=== PATIENT | male | born 2000 | race Caucasian/White ===

== ENCOUNTER 2020-05-26 20:56 | Emergency (ER) | payer MEDICAID, SELFPAY ==
[2020-05-26 21:11] VITALS: BP 140/73; PULSE 95; RESP 16; TEMP 37.1; O2SAT 100; BMI 18.2
--- NOTE | 2020-05-26 22:04 | ED_ITS ---
HPI - General Adult General Chief complaint: Extremity Problem Stated complaint: ABCESS? Time Seen by Provider: 05/26/20 22:04 History of Present Illness HPI narrative: This is a 19-year-old male who states that he has recently cut his hair with clippers and then began developing small ?pimples? to various areas of his scalp that he has tried to treat with [id number] T/Gel, Head and Shoulders without success and then he noted that he had a small area of swelling to the right posterior neck without redness, fevers, chills, neck stiffness. complaint: Swelling at the right posterior neck Location: neck Related Data Previous Rx's Medication Instructions Recorded doxycycline monohydrate 100 mg PO BID 5 Days #10 cap 05/26/20 Allergies Allergy/AdvReac Type Severity Reaction Status Date / Time No Known Allergies Allergy Unverified 02/29/20 17:18 Review of Systems Review of Systems: Pertinent positives and negatives as stated in HPI 10 point review of systems otherwise negative. [facility] Past Medical History Source: nursing notes reviewed Medical History Asthma Social History Social History Advance Directives: No Advance Directives Information Provided: Yes Physical Exam Vital Signs: Vital Signs: Last Vital Signs Temp 98.8 F 05/26/20 21:11 Pulse 95 05/26/20 21:11 Resp 16 05/26/20 21:11 BP 140/73 H 05/26/20 21:11 Pulse Ox 100 05/26/20 21:11 Body Mass Index 18.2 VITAL SIGNS: Reviewed. GENERAL: Well developed, well nourished, in no acute distress. HEAD: Normocephalic/scalp with multiple areas of folliculitis but no furuncles noted EYES: PERRLA, EOMI intact without pain, no nystagmus/pallor/icterus noted EARS: Ext canals without abnormality, TMs non-bulging and non-erythematous NOSE: Nares patent bilateral OROPHARYNX: no oral lesions noted, posterior pharynx clear and non-erythematous without noted tonsillar enlargement/erythema/exudates NECK: Supple, isolated right, posterior single enlarged lymph node approximately 2.5 cm without associated erythema, induration, fluctuance, it is mobile LUNGS: Normal breath sounds. No adventitious sounds or accessory muscle use. SpO2<100> CARDIOVASCULAR: Regular rate and rhythm without noted murmurs, no JVD or lower extremity edema. ABDOMEN: Soft, non-tender, non-distended with bowel sounds. No rigidity. No guarding. No palpable masses or hernias noted MUSCULOSKELETAL: No tenderness, deformities, or effusions noted on gross inspection. EXTREMITIES: No cyanosis, clubbing or edema. SKIN: Inspection of the skin reveals no rashes, ulcerations, jaundice, pallor, or petechiae. NEUROLOGIC: Alert and oriented x 4. Strength and sensation to light touch were grossly intact x 4. Course Course Course Narrative: This is a 19-year-old male with history and clinical presentation consistent with scalp folliculitis doubt head lice and no evidence to suggest tinea. The small areas are draining into the lymph node. The process was explained to the patient and he was informed that he will be started on an antibiotic and was otherwise instructed to follow-up with his primary care provider for re-evaluation and further outpatient management. Discharge Plan Discharge Clinical Impression: Folliculitis barbae Patient Disposition: Home, Self-Care Instructions: Folliculitis (ED) Additional Instructions: 1. Tylenol 1000 mg, orally, every 6 hours as needed for discomfort. Do not exceed 4000 mg within 24 hours. 2. Ibuprofen 400 mg, orally with milk or food, every 6 hours as needed for discomfort. 3. Please follow-up with your offline editor/primary care provider by calling the office Wednesday morning for re-evaluation and outpatient management regarding the scalp infection and current antibiotic regimen. The patient and/or family acknowledge understanding of results (as applicable), diagnosis, treatment plan, need for follow up, and symptoms that should prompt a return to the emergency room. Prescriptions: New doxycycline monohydrate 100 mg capsule 100 mg PO BID 5 Days Qty: 10 RF: 0 Referrals: Physician,Unknown [Primary Care Provider] - 2 days
== END 2020-05-26 22:36 | disposition home or self-care (01) ==
PROVIDERS: Emergency Provider Student in an Organized Health Care Education/Training Program
DX: L73.1 Pseudofolliculitis barbae (principal)
CPT/HCPCS: 99283

== ENCOUNTER 2020-06-30 12:51 | Emergency (ER) | payer MEDICAID, SELFPAY ==
[2020-06-30 13:19] VITALS: BP 128/69; PULSE 93; RESP 16; TEMP 36.7; O2SAT 97; BMI 19.8
--- NOTE | 2020-06-30 13:35 | ED.GENADULT ---
HPI - General Adult General Chief complaint: General Medical Stated complaint: cyst on neck Time Seen by Provider: 06/30/20 13:35 History of Present Illness HPI narrative: Patient is a 19-year-old male presents today with having itchy scalp. Patient also noted a mass in his neck. Patient from home. No fever no chills. No significant past medical history. No fever no chills. No cough no congestion or upper respiratory symptoms. Positive lots of dandruff. Patient from home. Extremely itchy scalp. Symptoms been ongoing for about a month. No chest pain or shortness of breath no diaphoresis no systemic complaints Related Data Previous Rx's Medication Instructions Recorded doxycycline monohydrate 100 mg PO BID 5 Days #10 cap 05/26/20 selenium sulfide 1 appl TOPICAL DAILY 7 Days ml 06/30/20 Allergies Allergy/AdvReac Type Severity Reaction Status Date / Time No Known Allergies Allergy Unverified 02/29/20 17:18 Review of Systems Review of Systems: Constitutional: No Weight loss, No Fever, No Chills, No Night Sweats, No Fatigue, No Malaise ENT/Mouth: No Hearing loss, No Ear Pain, No Nasal Congestion, No Sinus Pain, No Hoarseness, No sore throat, No Rhinorrhea, No Swallowing Difficulty Eyes: No Eye Pain, No Swelling, No Redness, No Foreign Body, No Discharge, No Vision Changes Cardiovascular: No Chest Pain, No SOB, No Dyspnea on Exertion, No Orthopnea, No Edema, No Palpitations Respiratory: No Cough, No Sputum, No Wheezing, No Smoke Exposure, No Dyspnea Gastrointestinal: No Nausea, No Vomiting, No Diarrhea, No Constipation, No abdominal Pain, No Hematochezia, No Melena Genitourinary: no irregular bleeding, No Dysuria, No Urinary Frequency, No Hematuria, No Urinary Incontinence, No Urgency, No Flank Pain, No Urinary Flow Changes, No Hesitancy Musculoskeletal: No joint pain, No Myalgias, No Joint Swelling Skin: Positive itchy scalp positive mass noted in the neck Neuro: No Weakness, No Numbness, No Paresthesias, No Loss of Consciousness, No Dizziness, No Headache Psych: No Anxiety/Panic, No Depression, No SI/HI/AH/VH, No Social Issues, Heme/Lymph: No Bruising, No Bleeding,No Lymphadenopathy Endocrine: No Polyuria, No Polydipsia, No Temperature Intolerance PMFSH Past Medical History Attestation statement: The following information was validated with the patient. Medical History Asthma Social History Social History Advance Directives: No Advance Directives Information Provided: Yes Physical Exam Vital Signs: Vital Signs: Last Vital Signs Temp 98.1 F 06/30/20 13:19 Pulse 93 06/30/20 13:19 Resp 16 06/30/20 13:19 BP 128/69 06/30/20 13:19 Pulse Ox 97 06/30/20 13:19 Body Mass Index 19.8 Appearance: Alert. Oriented X3. No acute distress. Eyes: Pupils equal, round and reactive to light. ENT: Pharynx normal. Neck: Normal inspection. Neck supple. Positive lymph nodes noted. No crepitus CVS: Normal heart rate and rhythm. Pulses normal. Normal S1 and S2 Respiratory: No respiratory distress. Breath sounds normal. No Wheezing. No rales Abdomen: Soft and nontender. No rigidity. No distention. good BS x4 Skin: Dry itchy scalp with areas of redness noted. Extremities: No lower extremity edema. Neurovascular intact to all extremities. No Lacerations. No Rash Neuro: Oriented X 3. No motor deficit. No sensory deficit. Moving all extermities. No slurred speech Medical Decision Making MDM Narrative Medical decision making narrative: Question dandruff causing patient's issues. Will go ahead and have patient use dandruff shampoo. Follow up with his primary physician on an outpatient basis. No distress. Vital signs are normal. In stable condition Discharge Plan Discharge Clinical Impression: Dandruff in adult Patient Disposition: Home, Self-Care Instructions: Selenium Sulfide (On the skin) Prescriptions: New selenium sulfide 1 % shampoo 1 appl topical DAILY 7 Days RF: 0 No Action doxycycline monohydrate 100 mg capsule 100 mg PO BID 5 Days Qty: 10 RF: 0 Referrals: [facility] [Primary Care Provider] - 2 days
== END 2020-06-30 14:00 | disposition home or self-care (01) ==
PROVIDERS: Emergency Provider Emergency Medicine Emergency Medical Services
DX: L21.0 Seborrhea capitis (principal); L29.8 Other pruritus; Z79.899 Other long term (current) drug therapy
CPT/HCPCS: 99283

== ENCOUNTER 2020-11-05 17:02 | Emergency (ER) | payer MEDICAID, SELFPAY ==
[2020-11-05 17:22] VITALS: BP 115/79; PULSE 99; RESP 18; TEMP 37; O2SAT 100; BMI 40.2
--- NOTE | 2020-11-05 17:39 | ED_ITS ---
HPI - Allergic Reaction General Chief complaint: Allergic Reaction Stated complaint: allergic reaction Time Seen by Provider: 11/05/20 17:31 Source: patient, RN notes reviewed and old records reviewed Mode of arrival: ambulatory Limitations: no limitations History of Present Illness HPI narrative: 19 years old male here today for allergic reaction. Patient was seen by his eyewear manufacturing tech today for his weekly allergy shots and developed diffuse rash on his torso, itchy and swollen throat. Denies dysphagia, SOB with or without exertion, palpitations or chest pain. Related Data Previous Rx's Medication Instructions Recorded doxycycline monohydrate 100 mg PO BID 5 Days #10 cap 05/26/20 selenium sulfide 1 appl TOPICAL DAILY 7 Days ml 06/30/20 epinephrine [EpiPen 2-Amando] 0.3 mg IM Q15M PRN #2 ea 11/05/20 Allergies Allergy/AdvReac Type Severity Reaction Status Date / Time No Known Allergies Allergy Unverified 02/29/20 17:18 Review of Systems Review of Systems: Constitutional : No Weight loss, No Fever, No Chills, No Ni ght Sweats, No Fatigue, No Malaise ENT/Mouth : No Hearing loss, No Ear Pain, No Nasal Congestion, No Sinus Pain, No Hoarseness, No sore throat, No Rhinorrhea, No Swallowing Difficulty, scratchy throat, swelling of his throat Eyes: No Eye Pain, No Swelling, No Redness, No Foreign Body, No Discharge, No Vision Changes Cardiovascular : No Chest Pain, No SOB, No Dyspnea on Exertion, No Orthopnea, No Edema, No Palpitations Respiratory : No Cough, No Sputum, No Wheezing, No Smoke Exposure, No Dyspnea Gastrointestinal : No Nausea, No Vomiting, No Diarrhea, No Constipation, No abdominal Pain, No Hematochezia, No Melena Genitourinary : no irregular bleeding, No Dysuria, No Urinary Frequency, No Hematuria, No Urinary Incontinence, No Urgency, No Flank Pain, No Urinary Flow Changes, No Hesitancy Musculoskeletal : No joint pain, No Myalgias, No Joint Swelling Skin : No Skin Lesions, rash Neuro : No Weakness, No Numbness, No Paresthesias, No Loss of Consciousness, No Dizziness, No Headache Psych : No Anxiety/Panic, No Depression, No SI/HI/AH/VH, No Social Issues, Heme/Lymph: No Bruising, No Bleeding,No Lymphadenopathy Endocrine : No Polyuria, No Polydipsia, No Temperature Intolerance Yes all other systems are reviewed and are negative [facility] Past Medical History Medical History Asthma Social History Social History Advance Directives: No Advance Directives Information Provided: Yes Physical Exam Vital Signs: Vital Signs: Last Vital Signs Temp 98.6 F 11/05/20 17:22 Pulse 99 11/05/20 17:22 Resp 18 11/05/20 17:22 BP 115/79 11/05/20 17:22 Pulse Ox 100 11/05/20 17:22 Body Mass Index 40.2 Const: General: cooperative, healthy appearing and comfortable Nutritional Appearance: average body habitus Orientation/consciousness: patient oriented x3 Limitations: no limitations HENMT: Head: Yes normal to inspection Ears: hearing grossly normal bilaterally General nose exam: Normal external nose present Face and sinus: Yes normal facial exam Mouth: Normal oral and palatal mucosa present Throat: Yes posterior oropharynx normal and Yes other (Swelling of his tonsils) Eyes: General: appearance normal, both eyes and all related structures Eyelids: Yes eyelids normal Conjunctivae: conjunctivae normal Sclerae: sclerae normal Pupils: Equal, round and reactive pupils present Neck: Neck: Yes normal visual inspection, Yes full ROM, Yes no lymphadenopathy, Yes trachea midline and Yes supple Thyroid: Thyroid normal Lymphatic: no lymphadenopathy noted Chest: Chest palpation & inspection: normal inspection of the chest Resp: Effort & Inspection: normal respiratory effort and able to speak in complete sentences Auscultation: clear to auscultation bilaterally Cardio: Jugular venous distension: no JVD Rate: regular rate Rhythm: regular rhythm Heart sounds: S1 normal heart sound present, S2 normal heart sound present, no gallops, no murmurs and no rubs Peripheral pulses: Peripheral pulses 2+ throughout GI: Inspection: Yes normal to inspection and No distended Palpation (GI): No hepatosplenomegaly present and No Rebound tenderness present Percussion: Yes normal to percussion Auscultation: normal bowel sounds Back/Spine/Pelvis: Cervical Spine: cervical ROM normal and No cervical muscular tenderness Thoracic/Lumbar Spine: thoracic and lumbar spine normal to inspection Skin: General skin exam: elasticity normal, turgor normal and other (Diffuse rash to torso and bilateral upper extremities) Neuro: General: patient oriented x3 Cranial nerves: Yes Equal, round and reactive pupils present Extrem: General: Yes normal to inspection, Yes full ROM and Yes capillary refill normal Psych: Appearance: grossly normal Mental Status: mental status grossly normal Speech and movement: Normal speech and movement present Affect: normal affect Attitude: cooperative Thought process: Normal thought process present Insight: Good insight present (Psych) Course Course Course Narrative: 19-year-old male here today for allergic reaction after receiving his weekly allergy shots. Diffuse rash on his abdomen, back and upper extremities. Scratchy throat, negative for dysphagia, SOB, CP, palpitations. Will medicate him with Benadryl, Solu-Medrol, epinephrine. Reevaluation(s) Reevaluation #1: Patient re-evaluated and has no rash, denies tingling of his throat. We will watch him for another half an hour and patient will call his father to take him home. Denies any SOB, dysphagia or palpitations. Rash completely gone, his throat feels much better. I will send him home to follow up with his PCP and his eyewear manufacturing tech Discharge Plan Discharge Clinical Impression: Allergic reaction, Urticaria Patient Disposition: Home, Self-Care Instructions: Urticaria (ED), General Allergic Reaction (ED) Additional Instructions: You were seen here today for allergic reaction to the allergy shots. You were given epinephrine, Solu-Medrol, Benadryl and fluids to reverse the allergic reaction. Please follow-up with your eyewear manufacturing tech so you can avoid allergic reaction in the future. You were monitored in the ER for 2 hours after the medication. Please follow-up with your primary care doctor in 2-3 days. You may return to emergency room if your symptoms return/get worse or if you will experience any other concerning symptoms. Prescriptions: New epinephrine [EpiPen 2-Amando] 0.3 mg/0.3 mL auto-injector 0.3 mg IM Q15M PRN (Reason: allergic reaction) Qty: 2 RF: 0 No Action selenium sulfide 1 % shampoo 1 appl topical DAILY 7 Days RF: 0 doxycycline monohydrate 100 mg capsule 100 mg PO BID 5 Days Qty: 10 RF: 0 Interventions: ED Discharge Assessment Last Done: 11/05/20 20:02
[2020-11-05] MEDS: methylPREDNISolone Sod Succ 125 MG/2 ML VIAL IVPUSH (18:14)
[2020-11-05] MEDS: diphenhydrAMINE HCL 50 MG/ML VIAL 25 MG IVPUSH (18:14)
[2020-11-05] MEDS: EPINEPHrine 1 MG/ML VIAL 0.3 MG SUBCUT (18:15)
[2020-11-05] MEDS: 0.9 % Sodium Chloride 1,000 ML 999 ML IV (18:15)
== END 2020-11-05 20:02 | disposition home or self-care (01) ==
PROVIDERS: Emergency Provider Internal Medicine
DX: L50.9 Urticaria, unspecified (principal); T50.Z95A Adverse effect of other vaccines and biological substances, initial encounter; Y92.019 Unspecified place in single-family (private) house as the place of occurrence of the external cause; J45.909 Unspecified asthma, uncomplicated
CPT/HCPCS: 96361; 96372; 96374; 96375; 99283; 99284; J0171; J1200; J2930

== ENCOUNTER 2021-03-10 17:15 | Emergency (ER) | payer MEDICAID, SELFPAY ==
[2021-03-10 20:16] VITALS: BP 131/76; PULSE 74; RESP 18; TEMP 37.4; O2SAT 100; BMI 19.8
[2021-03-10 20:49] LABS: COVID-19 Test Negative (Negative)
--- NOTE | 2021-03-10 20:52 | ED_ITS ---
HPI - General Adult General Chief complaint: General Medical Stated complaint: congestion fever Time Seen by Provider: 03/10/21 20:52 Source: patient Mode of arrival: ambulatory Limitations: no limitations History of Present Illness HPI narrative: nasal congestion, ear pain, sore throat. symptoms started 2 days ago. patient is vaccinated against COVID. His father has the same symptoms, was COVID negative Onset (ago): day(s) Severity: mild Associated symptoms: headaches and malaise Related Data Previous Rx's Medication Instructions Recorded doxycycline monohydrate 100 mg 100 mg PO BID 5 Days #10 cap 05/26/20 capsule selenium sulfide 1 % shampoo 1 appl TOPICAL DAILY 7 Days ml 06/30/20 epinephrine 0.3 mg/0.3 mL 0.3 mg IM Q15M PRN #2 ea 11/05/20 injection, auto-injector (EpiPen 2-Amando) fluticasone propionate 50 2 spray INTRANASAL DAILY #16 g 03/10/21 mcg/actuation nasal spray,suspension (Flonase Allergy Relief) Allergies Allergy/AdvReac Type Severity Reaction Status Date / Time No Known Allergies Allergy Unverified 02/29/20 17:18 Review of Systems Constitutional: Constitutional: Reports no additional constitutional complaints Eyes: Eyes: Reports no additional eye complaints ENT: Denies dizziness Cardiovascular: Cardiovascular: Reports no additional cardiovascular complaints Respiratory: Respiratory: Reports as per HPI Gastrointestinal: Gastrointestinal: Reports no additional gastrointestinal complaints Musculoskeletal: Musculoskeletal: Reports no additional musculoskeletal complaints Integumentary/Breasts: Skin/Breast: Denies rash Neurologic: Reports system reviewed and no additional complaints, except as documented, Denies dizziness and Denies Sensory deficit (Neuro) Psychiatric: Psychiatric: Denies anxiety [facility] Past Medical History Medical History Asthma Social History Social History Alcohol intake: never Patient Tobacco Use Status: Never used Tobacco Use of substances other than those prescribed or required for medical reasons: No Advance Directives: No Physical Exam Vital Signs: Vital Signs: Last Vital Signs Temp 99.4 F 03/10/21 20:16 Pulse 74 03/10/21 20:16 Resp 18 03/10/21 20:16 BP 131/76 03/10/21 20:16 Pulse Ox 100 03/10/21 20:16 Body Mass Index 19.8 Const: Other: Nasal congestion and headache Nutritional Appearance: average body habitus Orientation/consciousness: oriented to person and patient oriented x3 Limitations: no limitations HENMT: Other: right TM with effusion and congestion Head: Yes normal to inspection General nose exam: Normal external nose present Mouth: Normal oral and palatal mucosa present and oropharynx normal Throat: Yes posterior oropharynx normal Eyes: General: appearance normal, both eyes and all related structures Neck: Other: supple Neck: Yes normal visual inspection Chest: Chest palpation & inspection: normal inspection of the chest Resp: Auscultation: clear to auscultation bilaterally Cardio: Jugular venous distension: no JVD Rate: regular rate Rhythm: regular rhythm Heart sounds: S1 normal heart sound present and S2 normal heart sound present GI: Inspection: Yes normal to inspection Palpation (GI): Soft to palpation, nontender and No hepatosplenomegaly present Auscultation: normal bowel sounds : General: Yes no CVA tenderness Back/Spine/Pelvis: Back: no CVA tenderness Skin: General skin exam: no rashes or lesions noted Neuro: General: oriented to person and patient oriented x3 Cranial nerves: Yes CN's II-XII intact bilaterally Motor exam (neuro): 5/5 motor strength present throughout Sensory Exam: No Sensory deficit (Neuro) Extrem: General: Yes normal to inspection Psych: Appearance: grossly normal Course Reevaluation(s) Reevaluation #1: Patient with viral URI will dc on nasonex Time: 21:02 Medical Decision Making Lab Data Labs: Lab Results 03/10/21 Range/Units 20:26 COVID-19 ([facility]) Negative (Negative) COVID-19 Clin Com See Note Discharge Plan Discharge Clinical Impression: Upper respiratory infection, viral Sinusitis Qualifiers: Sinusitis location: frontal Chronicity: acute Recurrence: not specified as recurrent Qualified Code(s): J01.10 - Acute frontal sinusitis, unspecified Patient Disposition: Home, Self-Care Instructions: Upper Respiratory Infection (ED), Viral Syndrome (ED) Prescriptions: New fluticasone propionate [Flonase Allergy Relief] 50 mcg/actuation s pray,suspension 2 spray intranasal DAILY Qty: 16 RF: 0 No Action selenium sulfide 1 % shampoo 1 appl topical DAILY 7 Days RF: 0 doxycycline monohydrate 100 mg capsule 100 mg PO BID 5 Days Qty: 10 RF: 0 epinephrine [EpiPen 2-Amando] 0.3 mg/0.3 mL auto-injector 0.3 mg IM Q15M PRN (Reason: allergic reaction) Qty: 2 RF: 0 Referrals: Physician,Unknown [Primary Care Provider] - 5 days
[2021-03-10] MEDS: Acetaminophen 325 MG TABLET 975 MG PO (21:18)
== END 2021-03-10 21:43 | disposition home or self-care (01) ==
PROVIDERS: Emergency Provider Emergency Medicine
DX: J06.9 Acute upper respiratory infection, unspecified (principal); J01.10 Acute frontal sinusitis, unspecified; R50.9 Fever, unspecified; Z20.822 Contact with and (suspected) exposure to COVID-19; Z79.899 Other long term (current) drug therapy
CPT/HCPCS: 36415; 87635; 99283; 99284

== ENCOUNTER 2022-03-06 15:36 | Outpatient (REF) | payer MEDICAID, SELFPAY ==
--- NOTE | ~2022-03-06 | US_ITS ---
EXAMINATION: ULTRASOUND LEFT ARM SOFT TISSUES CLINICAL INFORMATION: History of benign lipomatous neoplasm of left arm. Left arm lump. COMPARISON: None TECHNIQUE: Targeted ultrasound images were obtained by the medical cost consultant of the area of concern as indicated by the patient at the proximal left forearm. Radiologist was not in attendance. Images were later provided for interpretation. FINDINGS: Targeted ultrasound images obtained by the medical cost consultant of the area of concern as indicated by the patient in the proximal left forearm demonstrate a subtle hypoechoic focus which measures 0.3 cm in the transverse plane and was difficult to characterize and orthogonal planes. This lesion is indeterminate, but differential considerations include possible small muscle hernia or lipoma. US/US extremity nonvascular IMPRESSION: There is a 0.3 cm hypoechoic focus in the area of concern indicated by the patient in the proximal left forearm difficult to characterize, subtle. This lesion is indeterminate, but differential considerations include possible small muscle hernia or lipoma.
== END 2022-03-06 15:37 | disposition home or self-care (01) ==
LOC: HO.US 15:36
PROVIDERS: PCP Nurse Practitioner Primary Care; Visit Provider Nurse Practitioner Primary Care
DX: D17.22 Benign lipomatous neoplasm of skin and subcutaneous tissue of left arm (principal)
CPT/HCPCS: 76882

== ENCOUNTER → 2022-04-14 08:30 | Outpatient (BNVA) | payer MEDICAID, SELFPAY | PROVIDERS: PCP Nurse Practitioner Primary Care; Visit Provider Surgery | DX: D17.20 Benign lipomatous neoplasm of skin and subcutaneous tissue of unspecified limb (principal) | CPT/HCPCS: 99202 ==

== ENCOUNTER 2022-05-14 10:43 | Outpatient (REF) | payer MEDICAID, SELFPAY ==
[2022-05-14 10:50] VITALS: BMI 19.8
[2022-05-14 10:52] VITALS: BP 129/79; PULSE 99; RESP 16; TEMP 36.9; O2SAT 97
[2022-05-14 11:25] VITALS: BP 109/65; PULSE 76; RESP 16; O2SAT 98
--- NOTE | 2022-05-14 11:36 | P.OP_ITS ---
Operative Note Operative Note Date of Service: 05/14/22 Narrative: Preoperative diagnosis: Lipoma left forearm Postoperative diagnosis: Same Procedure: Excision of left forearm lipoma Surgeon: Rahul Jimenez MD Business Programmer: None Anesthesia: Local Indications for procedure: 21-year-old male patient with a soft tissue mass located in the mid forearm posterior surface Operative findings: 1 cm lipoma left mid forearm Specimen: Lipoma left forearm Estimated blood loss: Less than 1 mL Complications: None Procedure details: Patient was brought to the minor surgery suite placed in a sitting position with the left arm flexed at the elbow. The site of surgery confirmed by the patient. After assuring informed consent the skin was prepped with Betadine and draped in a sterile fashion. Local anesthesia was then infiltrated directly over the lipoma. The incision was then made directly over the lipoma and carried out through subcutaneous tissue. Sharp dissection was then used to excise lipoma using a Metzenbaum scissors. Hemostasis was assured using light pressure. Wounds were then irrigated with saline solution. Skin was then reapproximated using 2 interrupted 4-0 nylon sutures. Sterile dressings consisting of 2 x 2 gauze and Tegaderm were then applied. The patient tolerated the procedure well. He was discharged to home in stable condition.
== END 2022-05-14 10:44 | disposition home or self-care (01) ==
LOC: HO.MS 10:43
PROVIDERS: PCP Nurse Practitioner Primary Care; Visit Provider Surgery
PROC: (CPT 25075; principal; 2022-05-14 11:00)
DX: D17.22 Benign lipomatous neoplasm of skin and subcutaneous tissue of left arm (principal)
CPT/HCPCS: 25075; 88304

== ENCOUNTER 2023-07-24 20:33 | Emergency (ER) | payer OTHER, SELFPAY ==
[2023-07-24 20:42] VITALS: BP 149/76; PULSE 101; RESP 17; TEMP 37.1; O2SAT 99; BMI 24.4
[2023-07-24 21:18] LABS: Hematocrit 42.6 % (42.0-52.0); Hemoglobin 14.5 g/dl (14.0-18.0); Mean Corpuscular Hemoglobin 28.8 pg (27.0-33.0); Mean Corpuscular Volume 84.5 fL (80.0-98.0); Platelet Count 188 X10*3/uL (160-400); Red Blood Count 5.04 X10*6/uL (4.60-5.80); Red Cell Distribution Width 11.9 % (11.0-16.0); White Blood Count 6.7 X10*3/uL (4.8-10.8)
[2023-07-24 21:32] LABS: Alanine Aminotransferase 19 U/L (0-40); Albumin Level 4.5 g/dL (3.5-5.0); Alkaline Phosphatase 53 U/L (39-117); Anion Gap 14 (12-20); Aspartate Amino Transferase 23 U/L (5-37); Bilirubin Total 0.3 mg/dL (0.0-1.0); Blood Urea Nitrogen 15 mg/dL (9-16); Calcium 9.2 mg/dL (8.4-10.2); Carbon Dioxide 25 mmol/L (22-29); Chloride 104 mmol/L (96-108); Creatinine Clr Calc Pharmacy 120.8; Estimated Glomerular Filt Rate > 60; Glucose Random 114 mg/dL (60-115); Lipase 18 U/L (8-78); Potassium 3.5 mmol/L (3.3-5.1); Sodium 139 mmol/L (135-145); Total Protein 7.3 g/dL (6.5-8.0)
[2023-07-24 21:34] VITALS: BP 121/76; PULSE 102; RESP 16; TEMP 36.9; O2SAT 100
--- NOTE | 2023-07-24 22:01 | ED_ITS ---
HPI - Abdominal Pain General Chief Complaint: Abdominal Pain Stated Complaint: Abdominal pain Time Seen by Provider: 07/24/23 21:58 Source: patient Mode of arrival: ambulatory Limitations: no limitations History of Present Illness HPI narrative: Patient otherwise healthy changes late complaining of pain in mid abdomen lower abdomen for last 3 days had normal bowel movement prior to arrival no nausea no vomiting no diarrhea patient's appetite is normal no fever no chills no urinary symptoms patient never had similar pain in the past Related Data Previous Rx's Medication Instructions Recorded doxycycline monohydrate 100 mg 100 mg PO BID 5 days #10 caps 05/26/20 capsule selenium sulfide 1 % shampoo 1 appl topical DAILY 7 days 06/30/20 epinephrine 0.3 mg/0.3 mL 0.3 mg (0.3 mL) IM Q15M PRN 11/05/20 injection, auto-injector (EpiPen allergic reaction #2 ea 2-Amando) fluticasone propionate 50 2 spray intranasal DAILY #16 grams 03/10/21 mcg/actuation nasal spray,suspension (Flonase Allergy Relief) Allergies Allergy/AdvReac Type Severity Reaction Status Date / Time Seasonal Allergies AdvReac Runny Nose Verified 05/21/22 10:45 Review of Systems Review of Systems Yes all other systems are reviewed and are negative PMF Past Medical History Medical History Asthma Surgical History History of excision of mass (05/14/22) Family History Family History Father Lung cancer Social History Social History Alcohol intake: never Patient Tobacco Use Status: Never used Tobacco Smoked in Last 30 Days: No Use of substances other than those prescribed or required for medical reasons: No Advance Directives: No Advance Directives Information Provided: No Physical Exam ED Vital Signs: Vital Signs - 24 hr 07/24/23 20:42 07/24/23 21:34 07/24/23 23:09 Temperature 98.8 F 98.4 F Pulse Rate 101 H 102 H 89 Respiratory Rate 17 16 16 Blood Pressure 149/76 H 121/76 121/76 Pulse Oximetry 99 100 Oxygen Delivery Method Room Air Room Air BMI result Body Mass Index 24.4 Appearance: Alert. Oriented X3. No acute distress. Eyes: No pallor or icterus ENT: Pharynx normal. Oral Mucosa moist Neck: Normal inspection. Neck supple. CVS: Normal heart rate and rhythm. Pulses normal. Respiratory: No respiratory distress. Equal air entry bilateral, Abdomen: Soft mild deep tenderness left lower quadrant no rebound tenderness or guarding Bowel sounds are present, no mass palpable, no CVA tenderness Skin: Skin warm and dry. Normal skin color. Normal skin turgor. Extremities: No lower extremity edema. No calf tenderness Neuro: Oriented X 3. Medical Decision Making Medical Decision Making [facility] Narrative: Patient nonspecific abdominal with normal CBC count no signs of infection liver enzymes negative lipase normal patient feels hungry likely nonspecific abdominal related to his diet will give Bentyl for bowel spasm discharge patient home Differential Diagnosis Differential Diagnoses: The differential diagnosis associated with the presentation includes Pancreatitis/ diverticulitis/constipation/UTI/kidney Lab Data [facility] Lab Attestation statement: I reviewed the patient's lab results. 07/24/23 21:12 07/24/23 21:12 Labs: Lab Results 07/24/23 07/24/23 Range/Units 21:12 22:29 WBC 6.7 (4.8-10.8) X10*3/uL RBC 5.04 (4.60-5.80) X10*6/uL Hgb 14.5 (14.0-18.0) g/dl Hct 42.6 (42.0-52.0) % MCV 84.5 (80.0-98.0) fL MCH 28.8 (27.0-33.0) pg MCHC 34.0 (31.0-36.0) g/dl RDW 11.9 (11.0-16.0) % Plt Count 188 (160-400) X10*3/uL MPV 11.0 (9.4-12.4) fL Absolute Nucleated RBC 0.000 (0.0-0.012) X10*3/uL Nucleated RBC % (auto) 0.0 (0.0-0.2) /100WBC Sodium 139 (135-145) mmol/L Potassium 3.5 (3.3-5.1) mmol/L Chloride 104 (96-108) mmol/L Carbon Dioxide 25 (22-29) mmol/L Anion Gap 14 (12-20) BUN 15 (9-16) mg/dL Creatinine 0.92 (0.5-1.4) mg/dL Estim Creat Clear Calc 120.8 Estimated GFR > 60 Random Glucose 114 (60-115) mg/dL Calcium 9.2 (8.4-10.2) mg/dL Total Bilirubin 0.3 (0.0-1.0) mg/dL AST 23 (5-37) U/L ALT 19 (0-40) U/L Alkaline Phosphatase 53 (39-117) U/L Total Protein 7.3 (6.5-8.0) g/dL Albumin 4.5 (3.5-5.0) g/dL Lipase 18 (8-78) U/L Urine Color Yellow Urine Appearance Clear Urine pH 6.5 (5.0-9.0) Ur Specific [place] 1.020 (1.005-1.025) Urine Protein Negative (Neg-Trace) mg/dL Urine Glucose (UA) Negative (Negative) mg/dL Urine Ketones Negative (Negative) mg/dL Urine Blood Negative (Negative) Urine Nitrite Negative (Negative) Ur Leukocyte Esterase Negative (Negative) Medications Administered Discontinued Medications Generic Name Dose Route Start Last Admin Trade Name Tang PRN Reason Stop Dose Admin Dicyclomine HCl 20 mg 07/24/23 22:44 07/24/23 23:08 Dicyclomine Hcl 10 Mg Capsule PO 07/24/23 22:45 20 mg ONCE ONE Administration Discharge Plan Discharge Clinical Impression: Abdominal pain Patient Disposition: Home, Self-Care Instructions: Abdominal Pain (ED) Additional Instructions: Your initial workup for the abdominal pain is negative for acute pathology likely happened secondary to bowel spasm Drink plenty of fluids, avoid dairy/fried products Follow-up with your PCP if pain continues Prescriptions: No Action selenium sulfide 1 % shampoo 1 appl topical DAILY 7 Days 0RF Rx Instructions: massage into affected area; leave on for 10 mins ; rinse off thoroughly doxycycline monohydrate 100 mg capsule 100 mg PO BID 5 Days Qty: 10 0RF epinephrine [EpiPen 2-Amando] 0.3 mg/0.3 mL auto-injector 0.3 mg IM Q15M PRN (Reason: allergic reaction) Qty: 2 0RF Rx Instructions: for 2 doses fluticasone propionate [Flonase Allergy Relief] 50 mcg/actuation spray,suspension 2 spray intranasal DAILY Qty: 16 0RF Rx Instructions: administer into each nostril Interventions: ED Discharge Assessment Last Done: 07/24/23 23:18 Discharge Date/Time: 07/24/23 23:19
[2023-07-24 22:39] LABS: Appearance Urine Clear; Color Urine Yellow; Glucose Urine UA Negative (Negative); Leukocyte Esterase Urine Negative (Negative); Nitrite Urine Negative (Negative); PH 6.5 (5.0-9.0); Urine Blood Negative (Negative); Urine Ketones Negative (Negative); Urine Protein Negative (Neg-Trace)
[2023-07-24] MEDS: Dicyclomine HCl 10 MG CAPSULE 20 MG PO (23:08)
[2023-07-24 23:09] VITALS: BP 121/76; PULSE 89; RESP 16
== END 2023-07-24 23:19 | disposition home or self-care (01) ==
PROVIDERS: Emergency Provider Internal Medicine; PCP Nurse Practitioner Primary Care
DX: R10.32 Left lower quadrant pain (principal); Z79.899 Other long term (current) drug therapy
CPT/HCPCS: 36415; 80053; 81003; 83690; 85027; 99283; 99284

== ENCOUNTER 2023-08-28 04:24 | Emergency (ER) | payer OTHER, SELFPAY ==
[2023-08-28 04:30] VITALS: BP 133/83; PULSE 112; RESP 18; TEMP 37.4; O2SAT 98; BMI 20.8
--- NOTE | 2023-08-28 05:18 | ED_ITS ---
HPI - Fever General Chief Complaint: Fever Stated Complaint: Fever Time Seen by Provider: 08/28/23 05:14 Source: patient Mode of arrival: ambulatory Limitations: no limitations History of Present Illness HPI Narrative: 22 yo male healthy here with c/o body aches, cough, fevers, nausea but no further vomiting. He feels tired and weak at this time. No travel no sick contacts. Up to date on covid but no flu MD elicited complaint: fever, malaise and weakness Onset (ago): day(s) (3) Exacerbating factors: exertion Relieving factors: acetaminophen and ibuprofen Associated symptoms: chills, myalgias, headache, cough, nausea and vomiting Treatments prior to arrival fever: none Related Data Previous Rx's Medication Instructions Recorded doxycycline monohydrate 100 mg 100 mg PO BID 5 days #10 caps 05/26/20 capsule selenium sulfide 1 % shampoo 1 appl topical DAILY 7 days 06/30/20 epinephrine 0.3 mg/0.3 mL 0.3 mg (0.3 mL) IM Q15M PRN 11/05/20 injection, auto-injector (EpiPen allergic reaction #2 ea 2-Amando) fluticasone propionate 50 2 spray intranasal DAILY #16 grams 03/10/21 mcg/actuation nasal spray,suspension (Flonase Allergy Relief) ondansetron 4 mg disintegrating 4 mg PO Q8H PRN nausea and 08/28/23 tablet vomiting #20 tabs Allergies Allergy/AdvReac Type Severity Reaction Status Date / Time Seasonal Allergies AdvReac Runny Nose Verified 08/28/23 04:30 Review of Systems Review of Systems: Constitutional : pos Fever, pos Chills, pos Fatigue ENT/Mouth : No sore throat, No Rhinorrhea Eyes: No Eye Pain, No Swelling, No Redness Cardiovascular : No Chest Pain, No SOB, No Dyspnea on Exertion Respiratory : No Cough, No Sputum Gastrointestinal : pos Nausea, pos Vomiting, No Diarrhea, No abdominal Pain Genitourinary : No Dysuria, No Urinary Frequency, No Hematuria, Musculoskeletal : No joint pain, pos Myalgias, No Joint Swelling Skin : No Skin Lesions, No rash Neuro : No Weakness, No Numbness, No Dizziness, positive Headache All other systems reviewed and are negative [facility] Past Medical History Attestation statement: The following information was validated with the patient. Source: old records reviewed Medical History Asthma Surgical History History of excision of mass (05/14/22) Family History Family History Father Lung cancer Social History Social History Alcohol intake: never Patient Tobacco Use Status: Never used Tobacco Advance Directives: No Advance Directives Information Provided: Yes Physical Exam Vital Signs: Vital Signs: Last Vital Signs Temp 99.4 F 08/28/23 04:30 Pulse 112 H 08/28/23 04:30 Resp 18 08/28/23 04:30 BP 133/83 08/28/23 04:30 Pulse Ox 98 08/28/23 04:30 O2 Del Method Room Air 08/28/23 04:30 BMI result Body Mass Index 20.8 Appearance: Alert. Oriented X3. No acute distress. Eyes: Pupils equal, round and reactive to light. ENT: Pharynx mildly dry MM Neck: Normal inspection. Neck supple. CVS: Normal heart rate and rhythm. Pulses normal. Respiratory: No respiratory distress. Breath sounds normal. Abdomen: Soft and nontender. Skin: Skin warm and dry. Normal skin color. Normal skin turgor. Extremities: No lower extremity edema. No calf ttp Neuro: Oriented X 3. No motor deficit. No sensory deficit. Medications Administered Generic Name Dose Route Start Last Admin Trade Name Freq PRN Reason Stop Dose Admin Sodium Chloride 1,000 mls @ 999 mls/hr 08/28/23 05:30 08/28/23 05:31 Ns IV 08/28/23 06:30 999 mls/hr .Q1H1M VAL Administration Discontinued Medications Generic Name Dose Route Start Last Admin Trade Name Freq PRN Reason Stop Dose Admin Ketorolac Tromethamine 15 mg 08/28/23 05:17 08/28/23 05:31 Ketorolac Tromethamine 15 Mg/Ml Vial IVPUSH 08/28/23 05:18 15 mg ONCE ONE Administration Ondansetron HCl 4 mg 08/28/23 05:17 08/28/23 05:31 Ondansetron Hcl 4 Mg/2 Ml Vial IVPUSH 08/28/23 05:18 4 mg ONCE ONE Administration Medical Decision Making Medical Decision Making [facility] Narrative: 22 yo male with no sig PMH here with c/o fevers and body aches x 3 days he is not vaccinated against the flu he has no travel exposures at this time will need viral panel and given his symptoms will hydrate and provide supportive medications. Not toxic overall clear lungs. Differential Diagnosis Differential Diagnoses: The differential diagnosis associated with the presentation includes flu covid Admission/Observation Consideration of admission/observation: Escalation of care including admission/observation considered able to tolerate PO not toxic stable for DC Lab Data [facility] Lab Attestation statement: I reviewed the patient's lab results. Labs: Lab Results 08/28/23 Range/Units 04:37 Influenza Type A (PCR) POSITIVE A (Negative) Influenza Type B (PCR) NEGATIVE (Negative) RSV RNA Qual (PCR) NEGATIVE (Negative) SARS-CoV-2 RNA (RT-PCR) NEGATIVE (Negative) Prescription Management I considered prescription management with: Antiviral (out of tamiflu window) and Other Discharge Plan Discharge Clinical Impression: Influenza A Patient Disposition: Home, Self-Care Instructions: Influenza (ED) Additional Instructions: stay hydrated take tylenol or motrin for fevers return for worsening symptoms or concerns Prescriptions: New ondansetron 4 mg tablet,disintegrating 4 mg PO Q8H PRN (Reason: nausea and vomiting) Qty: 20 0RF No Action selenium sulfide 1 % shampoo 1 appl topical DAILY 7 Days 0RF Rx Instructions: massage into affected area; leave on for 10 mins ; rinse off thoroughly doxycycline monohydrate 100 mg capsule 100 mg PO BID 5 Days Qty: 10 0RF epinephrine [EpiPen 2-Amando] 0.3 mg/0.3 mL auto-injector 0.3 mg IM Q15M PRN (Reason: allergic reaction) Qty: 2 0RF Rx Instructions: for 2 doses fluticasone propionate [Flonase Allergy Relief] 50 mcg/actuation spray,suspension 2 spray intranasal DAILY Qty: 16 0RF Rx Instructions: administer into each nostril Stand Alone Forms: Work/School Release
[2023-08-28 05:19] LABS: Influenza A PCR POSITIVE (Negative); Influenza B PCR NEGATIVE (Negative); Resp Syncy Virus RNA Qual PCR NEGATIVE (Negative); SARS COV2 PCR INHOUSE NEGATIVE (Negative)
[2023-08-28] MEDS: Ketorolac Tromethamine 15 MG/ML VIAL IVPUSH (05:31)
[2023-08-28] MEDS: ondansetron HCL 4 MG/2 ML VIAL IVPUSH (05:31)
[2023-08-28] MEDS: 0.9 % Sodium Chloride 1,000 ML 999 ML IV (05:31)
[2023-08-28 06:25] VITALS: BP 134/77; PULSE 106; RESP 14; TEMP 36.9; O2SAT 95
== END 2023-08-28 06:26 | disposition home or self-care (01) ==
PROVIDERS: Emergency Provider Emergency Medicine
DX: J10.1 Influenza due to other identified influenza virus with other respiratory manifestations (principal); R05.9 Cough, unspecified; R11.0 Nausea; R50.9 Fever, unspecified
CPT/HCPCS: 0241U; 96361; 96374; 96375; 99284; J1885; J2405

== ENCOUNTER 2023-10-15 16:20 | Outpatient (REF) | payer OTHER, SELFPAY | END 2023-10-15 16:21 | disposition home or self-care (01) | LOC: HO.HHCLNP 16:20 | PROVIDERS: Visit Provider Student in an Organized Health Care Education/Training Program | DX: R10.9 Unspecified abdominal pain (principal) | CPT/HCPCS: 87177; 87209 ==

== ENCOUNTER 2023-10-28 17:03 | Outpatient (REF) | payer OTHER, SELFPAY | END 2023-10-28 17:04 | disposition home or self-care (01) | LOC: HO.HHCLNP 17:03 | PROVIDERS: Visit Provider Student in an Organized Health Care Education/Training Program | DX: R10.9 Unspecified abdominal pain (principal) | CPT/HCPCS: 87177; 87209 ==

== ENCOUNTER 2023-11-04 12:14 | Outpatient (REF) | payer OTHER, SELFPAY | END 2023-11-04 12:15 | disposition home or self-care (01) | LOC: HO.LNP 12:14 | PROVIDERS: Visit Provider Student in an Organized Health Care Education/Training Program | DX: R10.9 Unspecified abdominal pain (principal) | CPT/HCPCS: 87177; 87209 ==

== ENCOUNTER 2023-11-09 08:30 | Outpatient (REF) | payer OTHER, SELFPAY ==
[2023-11-09 11:53] LABS: Hematocrit 46.8 % (42.0-52.0); Hemoglobin 15.8 g/dl (14.0-18.0); Mean Corpuscular HGB Conc 33.8 g/dl (31.0-36.0); Mean Corpuscular Hemoglobin 29.1 pg (27.0-33.0); Mean Corpuscular Volume 86.2 fL (80.0-98.0); Mean Platelet Volume 11.4 fL (9.4-12.4); Platelet Count 212 X10*3/uL (160-400); Red Blood Count 5.43 X10*6/uL (4.60-5.80); Red Cell Distribution Width 12.1 % (11.0-16.0)
[2023-11-09 12:05] LABS: Estimated Average Glucose 94 mg/dL; Hemoglobin A1C 128.0289 umol/L; Hemoglobin A1c % 4.9 % (<6.0)
[2023-11-09 12:28] LABS: Alanine Aminotransferase 12 U/L (0-40); Albumin Level 4.7 g/dL (3.5-5.0); Alkaline Phosphatase 58 U/L (39-117); Anion Gap 13 (12-20); Aspartate Amino Transferase 17 U/L (5-37); Bilirubin Total 0.5 mg/dL (0.0-1.0); Blood Urea Nitrogen 19 mg/dL (9-16); Calcium 9.5 mg/dL (8.4-10.2); Carbon Dioxide 27 mmol/L (22-29); Chloride 105 mmol/L (96-108); Estimated Glomerular Filt Rate > 60; Glucose Random 86 mg/dL (60-115); Potassium 3.7 mmol/L (3.3-5.1); Sodium 141 mmol/L (135-145); Total Protein 7.6 g/dL (6.5-8.0)
[2023-11-09 12:44] LABS: TSH reflex Free T4 1.51 uIU/mL (0.32-4.0)
[2023-11-09 14:26] LABS: CT PCR NOT DETECTED (Not Detect.); NG PCR NOT DETECTED (Not Detect.)
[2023-11-10 09:12] LABS: Syphilis Screen Nonreactive (Nonreactive)
[2023-11-10 09:28] LABS: HBS Num1 > 1000.00 mIU/mL (0-7.99); HBc Num1 0.14 S/CO (0.00-0.79); HBsAGNum1 0.37 S/CO (0.00-0.99); HIV AB/AG Nonreactive (Nonreactive); HIV Num 1 0.07 S/CO (0.00-0.99); Hepatitis B Core Antibody Nonreactive (Nonreactive); Hepatitis B Surface Antigen Negative (Negative); ~HepC Num1 0.08 S/CO (0.00-0.79); ~Hepatitis B Surface Antibody REACTIVE (Nonreactive); ~Hepatitis C Antibody Nonreactive (Nonreactive)
== END 2023-11-09 08:31 | disposition home or self-care (01) ==
LOC: HO.HHCL 08:30
PROVIDERS: Visit Provider Student in an Organized Health Care Education/Training Program
DX: Z00.00 Encounter for general adult medical examination without abnormal findings (principal); Z11.4 Encounter for screening for human immunodeficiency virus [HIV]
CPT/HCPCS: 0353U; 36415; 80053; 83036; 84443; 85027; 86704; 86706; 86780; 86803; 87340; 87389

== ENCOUNTER 2023-11-11 13:26 | Outpatient (REF) | payer OTHER, SELFPAY ==
[2023-11-15 16:38] LABS: Immunoglobulin A 237 mg/dL (47-310); Transglutaminase IgA <1.0 U/mL
== END 2023-11-11 13:27 | disposition home or self-care (01) ==
LOC: HO.HHCL 13:26
PROVIDERS: Visit Provider Student in an Organized Health Care Education/Training Program
DX: R10.9 Unspecified abdominal pain (principal)
CPT/HCPCS: 36415; 82784; 86364

== ENCOUNTER 2023-12-31 21:25 | Emergency (ER) | payer OTHER, SELFPAY ==
[2023-12-31 21:43] VITALS: BP 128/75; PULSE 111; RESP 18; TEMP 38.1; O2SAT 99; BMI 22.9
[2023-12-31] MEDS: Acetaminophen 325 MG TABLET 650 MG PO (21:49)
[2023-12-31 22:13] LABS: IDNOW Serial# 58CA691E; Strep A Nucleic Acid Negative (Negative)
--- NOTE | 2023-12-31 22:40 | ED_ITS ---
HPI - URI/Sore Throat General Chief Complaint: Upper Respiratory Symptoms Stated Complaint: Fever, sore throat , congestion Time Seen by Provider: 12/31/23 22:11 Source: patient Mode of arrival: ambulatory Limitations: no limitations History of Present Illness ED Provider: lexie CONTRERAS Narrative: Patient history of asthma been congested coughing for last 3 days low-grade fever, malaise having sore throat occasional cough no significant shortness of breath Related Data Previous Rx's ?Medication ?Instructions ?Recorded doxycycline monohydrate 100 mg 100 mg PO BID 5 days #10 caps 05/26/20 capsule selenium sulfide 1 % shampoo 1 appl topical DAILY 7 days 06/30/20 epinephrine 0.3 mg/0.3 mL 0.3 mg (0.3 mL) IM Q15M PRN 11/05/20 injection, auto-injector (EpiPen allergic reaction #2 ea 2-Amando) fluticasone propionate 50 2 spray intranasal DAILY #16 grams 03/10/21 mcg/actuation nasal spray,suspension (Flonase Allergy Relief) ondansetron 4 mg disintegrating 4 mg PO Q8H PRN nausea and 08/28/23 tablet vomiting #20 tabs albuterol sulfate 2.5 mg/3 mL 2.5 mg (3 mL) inhalation Q4-6H PRN 12/31/23 (0.083 %) solution for nebulization shortness of breath or wheezing #90 mL ibuprofen 600 mg tablet 600 mg PO Q6H PRN fever or pain 12/31/23 #30 tabs Allergies Allergy/AdvReac Type Severity Reaction Status Date / Time Seasonal Allergies AdvReac Unknown Runny Nose Verified 12/31/23 21:44 Review of Systems Review of Systems: Yes all other systems are reviewed and are negative [facility] Past Medical History Medical History Asthma Surgical History History of excision of mass (05/14/22) Family History Family History Father Lung cancer Social History Social History Alcohol intake: never Patient Tobacco Use Status: Never used Tobacco Advance Directives: No Advance Directives Information Provided: No Physical Exam Vital Signs: Vital Signs: Last Vital Signs Temp 98.7 F 12/31/23 22:46 Pulse 111 H 12/31/23 21:43 Resp 18 12/31/23 21:43 BP 128/75 12/31/23 21:43 Pulse Ox 99 12/31/23 21:43 O2 Del Method Room Air 12/31/23 21:43 BMI result Body Mass Index 22.9 Appearance: Alert. Oriented X3. No acute distress. ENT: Pharynx normal. Oral Mucosa moist clear nasal Neck: Normal inspection. Neck supple. CVS: Normal heart rate and rhythm. Pulses normal. Respiratory: No respiratory distress. Equal air entry bilateral, no wheezing/rales/rhonchi Abdomen: Soft and nontender. Medications Administered Discontinued Medications Generic Name Dose Route Start Last Admin Trade Name Freq PRN Reason Stop Dose Admin Acetaminophen 650 mg 12/31/23 21:47 12/31/23 21:49 Acetaminophen 325 Mg Tablet PO 12/31/23 21:48 650 mg ONCE ONE Administration Medical Decision Making Lab Data [facility] Lab Attestation statement: I reviewed the patient's lab results. Labs: Lab Results 12/31/23 Range/Units 22:00 Influenza Type A (PCR) NEGATIVE (Negative) Influenza Type B (PCR) NEGATIVE (Negative) RSV RNA Qual (PCR) NEGATIVE (Negative) SARS-CoV-2 RNA (RT-PCR) POSITIVE A (Negative) S. pyogenes GrpA SAUL Negative (Negative) Discharge Plan Discharge Clinical Impression: COVID-19 Patient Disposition: Home, Self-Care Instructions: COVID-19 (Coronavirus Disease 2019) (ED) Additional Instructions: Stay hydrated Tylenol/Motrin for body aches and pain and fever Prescriptions: New albuterol sulfate 2.5 mg /3 mL (0.083 %) solution for nebulization 2.5 mg inhalation Q4-6H PRN (Reason: shortness of breath or wheezing) Qty: 90 0RF ibuprofen 600 mg tablet 600 mg PO Q6H PRN (Reason: fever or pain) Qty: 30 0RF No Action selenium sulfide 1 % shampoo 1 appl topical DAILY 7 Days 0RF Rx Instructions: massage into affected area; leave on for 10 mins ; rinse off thoroughly doxycycline monohydrate 100 mg capsule 100 mg PO BID 5 Days Qty: 10 0RF epinephrine [EpiPen 2-Amando] 0.3 mg/0.3 mL auto-injector 0.3 mg IM Q15M PRN (Reason: allergic reaction) Qty: 2 0RF Rx Instructions: for 2 doses fluticasone propionate [Flonase Allergy Relief] 50 mcg/actuation spray,suspension 2 spray intranasal DAILY Qty: 16 0RF Rx Instructions: administer into each nostril ondansetron 4 mg tablet,disintegrating 4 mg PO Q8H PRN (Reason: nausea and vomiting) Qty: 20 0RF Stand Alone Forms: Work/School Release Print Language: Latvian
[2023-12-31 22:42] LABS: Influenza A PCR NEGATIVE (Negative); Influenza B PCR NEGATIVE (Negative); Resp Syncy Virus RNA Qual PCR NEGATIVE (Negative); SARS COV2 PCR INHOUSE POSITIVE (Negative)
[2023-12-31 22:46] VITALS: TEMP 37.1
[2023-12-31 23:14] VITALS: BP 128/75; PULSE 92; RESP 15; TEMP 37.1; O2SAT 99
== END 2023-12-31 23:15 | disposition home or self-care (01) ==
PROVIDERS: Emergency Provider Internal Medicine; PCP Student in an Organized Health Care Education/Training Program
DX: U07.1 COVID-19 (principal); R06.02 Shortness of breath
CPT/HCPCS: 0241U; 87651; 99283

== ENCOUNTER 2024-03-31 10:10 | Outpatient (REF) | payer OTHER, SELFPAY ==
--- NOTE | ~2024-03-31 | XR_ITS ---
EXAMINATION: XR HAND, RIGHT CLINICAL INFORMATION: Fourth digit proximal bony sensation in ventral aspect. Evaluation of bone lesion. COMPARISON: None available. TECHNIQUE: PA, lateral, and oblique views of the right hand. FINDINGS: No discrete osseous lesion. No acute fracture or malalignment. Joint spaces are maintained. No unusual soft tissue calcifications. No significant soft tissue abnormality. XR/XR hand RT min 3V IMPRESSION: No significant radiographic abnormality. Consider further evaluation with targeted ultrasound or MRI as clinically warranted. Electronically signed by: Dinah Martin MD 03/31/2024 12:31 PM EDT
== END 2024-03-31 10:11 | disposition home or self-care (01) ==
LOC: HO.HHCX 10:10
PROVIDERS: Visit Provider Student in an Organized Health Care Education/Training Program
DX: L98.9 Disorder of the skin and subcutaneous tissue, unspecified (principal)
CPT/HCPCS: 73130

== ENCOUNTER 2024-05-13 20:20 | Emergency (ER) | payer OTHER, SELFPAY ==
[2024-05-13 20:23] VITALS: BP 120/76; PULSE 143; RESP 20; TEMP 37.2; O2SAT 99; BMI 25.1
--- NOTE | 2024-05-13 20:46 | ECG_ITS ---
Test Reason : n/v Blood Pressure : / mmHG Vent. Rate : 121 BPM Atrial Rate : 121 BPM P-R Int : 118 ms QRS Dur : 094 ms QT Int : 312 ms P-R-T Axes : 069 119 048 degrees QTc Int : 443 ms Sinus tachycardia Right axis deviation Abnormal ECG When compared with ECG of 13 may 2024 increase in ventricular rate Referred By: Pepper Vidal Electronically Signed By:RUTH ANN SUAREZ
--- NOTE | 2024-05-13 21:07 | ED_ITS ---
HPI - Nausea/Vomiting/Diarrhea General Chief complaint: Nausea/Vomiting/Diarrhea Stated complaint: vomiting/diarrhea Time Seen by Provider: 05/13/24 21:02 Source: patient Mode of arrival: ambulatory Limitations: no limitations History of Present Illness ED Provider: Dr. Emerald Piedra HPI Narrative: Patient comes to the emergency room complaining of nausea vomiting and diarrhea. Patient states that earlier today, patient ate a [employer] cheese steak around noon. Patient states that he has not seen any blood in the vomitus or the diarrhea. Complaining of diffuse abdominal cramping. Denies hematuria dysuria, no recent URI symptoms. According to the patient, no one in the family sick. Related Data Previous Rx's ?Medication ?Instructions ?Recorded doxycycline monohydrate 100 mg 100 mg PO BID 5 days #10 caps 05/26/20 capsule selenium sulfide 1 % shampoo 1 appl topical DAILY 7 days 06/30/20 epinephrine 0.3 mg/0.3 mL 0.3 mg (0.3 mL) IM Q15M PRN 11/05/20 injection, auto-injector (EpiPen allergic reaction #2 ea 2-Amando) fluticasone propionate 50 2 spray intranasal DAILY #16 grams 03/10/21 mcg/actuation nasal spray,suspension (Flonase Allergy Relief) ondansetron 4 mg disintegrating 4 mg PO Q8H PRN nausea and 08/28/23 tablet vomiting #20 tabs albuterol sulfate 2.5 mg/3 mL 2.5 mg (3 mL) inhalation Q4-6H PRN 12/31/23 (0.083 %) solution for nebulization shortness of breath or wheezing #90 mL ibuprofen 600 mg tablet 600 mg PO Q6H PRN fever or pain 12/31/23 #30 tabs loperamide 2 mg tablet 2 mg PO Q4H PRN loose stool #14 05/14/24 tabs prochlorperazine maleate 5 mg 5 mg PO TID PRN nausea and 05/14/24 tablet (Compazine) vomiting #10 tabs Allergies Allergy/AdvReac Type Severity Reaction Status Date / Time Seasonal Allergies AdvReac Unknown Runny Nose Verified 05/13/24 20:25 Review of Systems 2 Review of Systems: Constitutional : No Weight loss, No Fever, No Chills, No Night Sweats, No Fatigue, No Malaise ENT/Mouth : No Hearing loss, No Ear Pain, No Nasal Congestion, No Sinus Pain, No Hoarseness, No sore throat, No Rhinorrhea, No Swallowing Difficulty Eyes: No Eye Pain, No Swelling, No Redness, No Foreign Body, No Discharge, No Vision Changes Cardiovascular : No Chest Pain, No SOB, No Dyspnea on Exertion, No Orthopnea, No Edema, No Palpitations Respiratory : No Cough, No Sputum, No Wheezing, No Smoke Exposure, No Dyspnea Gastrointestinal : Complaining of nausea vomiting and diarrhea, complaining of diffuse abdominal discomfort and cramping Genitourinary : no irregular bleeding, No Dysuria, No Urinary Frequency, No Hematuria, No Urinary Incontinence, No Urgency, No Flank Pain, No Urinary Flow Changes, No Hesitancy Musculoskeletal : No joint pain, No Myalgias, No Joint Swelling Skin : No Skin Lesions, No rash Neuro : No Weakness, No Numbness, No Paresthesias, No Loss of Consciousness, No Dizziness, No Headache Psych : No Anxiety/Panic, No Depression, No SI/HI/AH/VH, No Social Issues, Heme/Lymph: No Bruising, No Bleeding,No Lymphadenopathy Endocrine : No Polyuria, No Polydipsia, No Temperature Intolerance PMFSH Past Medical History Medical History Asthma Surgical History History of excision of mass (05/14/22) Family History Family History Father Lung cancer Social History Social History Alcohol intake: never Patient Tobacco Use Status: Never used Tobacco Advance Directives: No Advance Directives Information Provided: No Physical Exam 2 Vital Signs: Vital Signs: Last Vital Signs Temp 97.9 F 05/13/24 21:22 Pulse 100 05/13/24 21:22 Resp 20 05/13/24 21:22 BP 120/70 05/13/24 21:22 Pulse Ox 100 05/13/24 21:22 O2 Del Method Room Air 05/13/24 21:22 BMI result Body Mass Index 25.1 Const: Other: Appearance: Alert. Oriented X3. Looks uncomfortable Eyes: Pupils equal, round and reactive to light. ENT: Pharynx normal. Neck: Normal inspection. Neck supple. No lymph nodes noted. No crepitus CVS: Normal heart rate and rhythm. Pulses normal. Normal S1 and S2 Respiratory: No respiratory distress. Breath sounds normal. No Wheezing. No rales Abdomen: Soft and nontender. No rigidity. No distention. Patient actively vomiting Skin: Skin warm and dry. Seems a bit pale, Normal skin turgor. Extremities: No lower extremity edema. No Lacerations. No Rash Neuro: Oriented X 3. No motor deficit. No sensory deficit. Moving all extremities. No slurred speech. CN 2 through 12 grossly intact Psych: calm, cooperative, normal affect Course Course Course Narrative: Patient reports eating food she has take approximately 9 hours ago here in our cafeteria. -to our knowledge, no one else has reported nausea/vomiting/diarrhea from the people who work here and ate at the cafeteria -patient receiving IV fluids, lactated Ringer's, patient already had a dose of p.o. Zofran at home which did not work, patient receiving now IV Compazine and once patient is able to tolerate p.o., patient will get 4 mg of loperamide -I discussed with the patient that depending on the patient's labs and repeated physical exam, we will decide if he needs a CT scan. Medications Administered Generic Name Dose Route Start Last Admin Trade Name Freq PRN Reason Stop Dose Admin Lactated Ringer's 2,000 mls @ 999 mls/hr 05/13/24 21:15 05/13/24 23:43 Lr IVCONT 999 mls/hr .Q2H1M VAL Administration Discontinued Medications Generic Name Dose Route Start Last Admin Trade Name Freq PRN Reason Stop Dose Admin Loperamide HCl 4 mg 05/13/24 21:06 05/13/24 22:37 Loperamide Hcl 2 Mg Capsule PO 05/13/24 21:07 4 mg ONCE ONE Administration Prochlorperazine Edisylate 10 mg 05/13/24 21:06 05/13/24 21:14 Prochlorperazine Edisylate 10 Mg/2 Ml Vial IVPUSH 05/13/24 21:07 10 mg ONCE ONE Administration Medical Decision Making Medical Decision Making MDM Narrative: After the above-mentioned treatment, patient states that he feels much better, not having any abdominal pain, no longer having any episodes of vomiting or diarrhea. -my interpretation of labs: Patient's white blood cell count 12.9, likely reactive leukocytosis. Chemistry does not show any significant acute abnormality in the electrolytes, LFTs and lipase normal, urinalysis negative for UTI -patient likely having gastroenteritis, versus viral illness. -on physical exam prior to discharge, patient states that his abdomen feels better. No pain -given patient's improvement, at this time, any further imaging is not indicated -Patient feels well enough to be discharged home Differential Diagnosis Differential Diagnoses: The differential diagnosis associated with the presentation includes Admission/Observation Consideration of admission/observation: Escalation of care including admission/observation considered (Given patient's initial presentation, observation was considered) Lab Data MDM Lab Attestation statement: I reviewed the patient's lab results. 05/13/24 21:10 05/13/24 21:10 Labs: Lab Results 05/13/24 05/13/24 Range/Units 21:10 23:45 WBC 12.9 H (4.8-10.8) X10*3/uL RBC 6.00 H (4.60-5.80) X10*6/uL Hgb 17.4 (14.0-18.0) g/dl Hct 50.0 (42.0-52.0) % MCV 83.3 (80.0-98.0) fL MCH 29.0 (27.0-33.0) pg MCHC 34.8 (31.0-36.0) g/dl RDW 12.1 (11.0-16.0) % Plt Count 221 (160-400) X10*3/uL MPV 10.9 (9.4-12.4) fL Immature Gran % (Auto) 0.4 (0.0-0.4) % Neut % (Auto) 86.5 H (45-73) % Lymph % (Auto) 4.8 L (20-40) % [place] % (Auto) 7.4 (2-11) % Eos % (Auto) 0.6 (0-4) % Baso % (Auto) 0.3 (0-2) % Lymph # (Auto) 0.6 L (1.2-4.9) X10*3/uL [place] # (Auto) 1.0 (0.1-1.2) X10*3/uL Eos # (Auto) 0.1 (0.0-0.4) X10*3/uL Baso # (Auto) 0.0 (0.0-0.2) X10*3/uL Abs Immat Gran (auto) 0.05 H (0.00-0.03) X10*3/uL Absolute Neuts (auto) 11.1 H (2.0-8.3) x10*3/uL Absolute Nucleated RBC 0.000 (0.0-0.012) X10*3/uL Nucleated RBC % (auto) 0.0 (0.0-0.2) /100WBC Sodium 140 (135-145) mmol/L Potassium 3.6 (3.3-5.1) mmol/L Chloride 106 (96-108) mmol/L Carbon Dioxide 21 L (22-29) mmol/L Anion Gap 17 (12-20) BUN 22 H (9-16) mg/dL Creatinine 0.84 (0.5-1.4) mg/dL Estim Creat Clear Calc 122.3 Estimated GFR > 60 Random Glucose 119 H (60-115) mg/dL Calcium 9.5 (8.4-10.2) mg/dL Magnesium 1.8 (1.6-2.6) mg/dL Total Bilirubin 0.8 (0.0-1.0) mg/dL AST 33 (5-37) U/L ALT 33 (0-40) U/L Alkaline Phosphatase 63 (39-117) U/L Total Protein 8.1 H (6.5-8.0) g/dL Albumin 5.0 (3.5-5.0) g/dL Lipase 17 (8-78) U/L Urine Color Yellow Urine Appearance Clear Urine pH 5.5 (5.0-9.0) Ur Specific [place] >= 1.030 H (1.005-1.025) Urine Protein Negative (Neg-Trace) mg/dL Urine Glucose (UA) Negative (Negative) mg/dL Urine Ketones 15 (Negative) mg/dL Urine Blood Negative (Negative) Urine Nitrite Negative (Negative) Ur Leukocyte Esterase Negative (Negative) Critical Care Time Critical Care Time Critical Care Time: Yes Total Critical Care Time: 45 Attestation: I have personally provided critical care time. Time includes review of lab data, radiology results, discussion with consultants, and monitoring for potential decompensation. Intervention performed as documented. Discharge Plan Discharge Clinical Impression: Nausea vomiting and diarrhea Patient Disposition: Home, Self-Care Instructions: Acute Nausea and Vomiting (ED) Additional Instructions: Please follow-up with your primary care physician tomorrow. If you have any worsening or new symptoms, please return to the emergency room or call 911 Prescriptions: New prochlorperazine maleate [Compazine] 5 mg tablet 5 mg PO TID PRN (Reason: nausea and vomiting) Qty: 10 0RF loperamide 2 mg tablet 2 mg PO Q4H PRN (Reason: loose stool) Qty: 14 0RF No Action selenium sulfide 1 % shampoo 1 appl topical DAILY 7 Days 0RF Rx Instructions: massage into affected area; leave on for 10 mins ; rinse off thoroughly doxycycline monohydrate 100 mg capsule 100 mg PO BID 5 Days Qty: 10 0RF epinephrine [EpiPen 2-Amando] 0.3 mg/0.3 mL auto-injector 0.3 mg IM Q15M PRN (Reason: allergic reaction) Qty: 2 0RF Rx Instructions: for 2 doses fluticasone propionate [Flonase Allergy Relief] 50 mcg/actuation spray,suspension 2 spray intranasal DAILY Qty: 16 0RF Rx Instructions: administer into each nostril ondansetron 4 mg tablet,disintegrating 4 mg PO Q8H PRN (Reason: nausea and vomiting) Qty: 20 0RF albuterol sulfate 2.5 mg /3 mL (0.083 %) solution for nebulization 2.5 mg inhalation Q4-6H PRN (Reason: shortness of breath or wheezing) Qty: 90 0RF ibuprofen 600 mg tablet 600 mg PO Q6H PRN (Reason: fever or pain) Qty: 30 0RF Stand Alone Forms: Work/School Release Print Language: Barbadian
[2024-05-13] MEDS: Prochlorperazine Edisylate 10 MG/2 ML VIAL IVPUSH (21:14)
[2024-05-13] MEDS: Lactated Ringers 2,000 ML 999 ML IVCONT ×2 (21:14→23:43)
[2024-05-13 21:16] LABS: MANUAL DIFF FLAG NO
[2024-05-13 21:18] LABS: Basophils Percent Auto 0.3 % (0-2); Eosinophils Absolute Auto 0.1 X10*3/uL (0.0-0.4); Eosinophils Percent Auto 0.6 % (0-4); Hemoglobin 17.4 g/dl (14.0-18.0); Imm Gran Abs Auto 0.05 X10*3/uL (0.00-0.03); Imm Gran Pct Auto 0.4 % (0.0-0.4); Lymphocytes Absolute Auto 0.6 X10*3/uL (1.2-4.9); Lymphocytes Percent Auto 4.8 % (20-40); Mean Corpuscular HGB Conc 34.8 g/dl (31.0-36.0); Mean Corpuscular Volume 83.3 fL (80.0-98.0); Mean Platelet Volume 10.9 fL (9.4-12.4); Monocytes Percent Auto 7.4 % (2-11); Neutrophils Absolute Auto 11.1 x10*3/uL (2.0-8.3); Neutrophils Percent Auto 86.5 % (45-73); Platelet Count 221 X10*3/uL (160-400); Red Cell Distribution Width 12.1 % (11.0-16.0); White Blood Count 12.9 X10*3/uL (4.8-10.8)
[2024-05-13 21:22] VITALS: BP 120/70; PULSE 100; RESP 20; TEMP 36.6; O2SAT 100
[2024-05-13 21:29] LABS: Alanine Aminotransferase 33 U/L (0-40); Alkaline Phosphatase 63 U/L (39-117); Anion Gap 17 (12-20); Aspartate Amino Transferase 33 U/L (5-37); Bilirubin Total 0.8 mg/dL (0.0-1.0); Blood Urea Nitrogen 22 mg/dL (9-16); Calcium 9.5 mg/dL (8.4-10.2); Carbon Dioxide 21 mmol/L (22-29); Chloride 106 mmol/L (96-108); Creatinine Clr Calc Pharmacy 122.3; Estimated Glomerular Filt Rate > 60; Glucose Random 119 mg/dL (60-115); Lipase 17 U/L (8-78); Magnesium 1.8 mg/dL (1.6-2.6); Potassium 3.6 mmol/L (3.3-5.1); Sodium 140 mmol/L (135-145); Total Protein 8.1 g/dL (6.5-8.0)
[2024-05-13] MEDS: Loperamide HCl 2 MG CAPSULE 4 MG PO (22:37)
[2024-05-13 23:52] LABS: Appearance Urine Clear; Color Urine Yellow; Glucose Urine UA Negative (Negative); Leukocyte Esterase Urine Negative (Negative); Nitrite Urine Negative (Negative); PH 5.5 (5.0-9.0); Specific Gravity - Urine >= 1.030 (1.005-1.025); Urine Blood Negative (Negative); Urine Ketones 15 mg/dL (Negative); Urine Protein Negative (Neg-Trace)
[2024-05-14 00:27] VITALS: BP 123/70; PULSE 118; RESP 20; TEMP 37.1; O2SAT 99
[2024-05-14 00:31] VITALS: BP 123/70; PULSE 118; RESP 20; TEMP 37.1; O2SAT 99
--- NOTE | 2024-05-14 00:31 | PC.NURSE ---
iv removed at discharge. significant other at bedside at discharge pt ambulatory pt verbalized understanding of discharge plan
== END 2024-05-14 00:36 | disposition home or self-care (01) ==
PROVIDERS: Physician Assistant Medical; Emergency Provider Emergency Medicine; PCP Student in an Organized Health Care Education/Training Program
DX: R11.2 Nausea with vomiting, unspecified (principal); R19.7 Diarrhea, unspecified; J45.909 Unspecified asthma, uncomplicated; Z79.899 Other long term (current) drug therapy
CPT/HCPCS: 36415; 80053; 81003; 83690; 83735; 85025; 93005; 96361; 96374; 99284; 99285; J0737; J7120

== ENCOUNTER → 2024-05-13 20:46 | Outpatient (BNV) | payer OTHER, SELFPAY | PROVIDERS: Emergency Provider Emergency Medicine; PCP Student in an Organized Health Care Education/Training Program; Visit Provider Internal Medicine | DX: R94.31 Abnormal electrocardiogram [ECG] [EKG] (principal) | CPT/HCPCS: 93010 ==

== ENCOUNTER 2024-10-30 15:10 | Outpatient (REF) | payer OTHER, SELFPAY ==
--- OUTSIDE RECORDS SUMMARY | 2024-10-30 16:30 | XMS_ITS | Clinical Summary ---
Author Organization [employer] Address [address] [facility] [address] [place] [address] Care Team Providers Care Apartment House Manager Name Role Phone Drea Tapia MD Primary [...] current outside psychotx any more per pt --[place] will check about that -RTC in 6 [...] (11/26/2022 7:20 PM EDT): -continue care w environmental conflict manager -px minocycline x 2 months Assessment & Plan (10/22/2022 4:21 PM EDT): -trying now w ketoconazole shampoo -improving -referred back to environmental conflict manager x chronic condition-has apt already x 11/17/2022 Assessment & Plan (10/09/2022 9:01 PM EDT): -trial w ketoconazole shampoo -referred back to environmental conflict manager Health care maintenance 10/09/2022 Assessment & Plan [...] Type Department Care Team Description 08/21/2024 Telephone [facility] MEDICINE [address] [place] [phone] Drea Tapia MD May recall from [...] AM EDT) Hepatitis C Antibody Nonreactive Nonreactive [facility] Comment:Antibodies to HCV no t detected; does not exclude early acuteHCV infection. Blood Venous blood specimen / Unknown 11/09/2023 8:32 AM EDT 11/09/2023 11:34 AM EDT us Drea Oconnell MD LAB BLOOD ORDERAB LES Final Result [facility] [address] [place] [phone] * HIV-1/2 Antigen and Antibodies, Fourth Generation, with Reflexes (11/09/2023 8:32 AM EDT) HIV AB/AG Nonreactive Nonreactive [facility] Comment:HIV-1 p24 Ag and/or HIV-1/HIV-2 Ab not detected.A test result that is nonreactive does not exclude thepossibility of exposure to or infection with HIV-1 and/orHIV-2. Nonreactive results in this assay for individualswith prior exposure to HIV-1 and/or HIV-2 may be due toantigen and antibody levels that are below the limit ofdetection of this assay.[employer] HIV Ag/Ab Combo assay result andsupplemental assay results should be interpreted inconjunction with the patient's clinical presentation,history and other laboratory results. If the results areinconsistent with clinical evidence, additional testing issuggested to confirm the result. Blood Venous blood specimen / Unknown 11/09/2023 8:32 AM EDT 11/09/2023 11:34 AM EDT Drea Oconnell MD LAB BLOOD ORDERAB LES Final Result [facility] [address] [place] [address] [phone] from Last 3 Months or Most Recently Relevant to Health Maintenance Insurance [facility] - HSN PARTIAL (MEDICAID) Care Teams Apartment House Manager Relationship Specialty Start Date End Date Drea Tapia MD [address] [place] [address] PCP - General Internal Medicine 09/22/22
--- OUTSIDE RECORDS SUMMARY | 2024-10-30 16:30 | XMS_ITS | Encounter Summary ---
Author Organization [employer] Address [address] [place] [address] 7 [place] [address] Care Team Providers Care Smokehouse Operator Name Role Phone Drea Tapia MD Primary Care Pro vider Reason for Visit * Reason Onset Date Comments Nurse Triage 03/11/2023 Encounter Details Date Type Department Care Team (Late st Contact Info) Description 03/11/2023 Telephone [facility] MEDICINE [address] [place] [address] Drea Tapia MD [address] [place] [address] Nurse Triage Social History Tobacco Use Types [...] chronic problem which has been treated by fishing captain withsome , pills and shampoo about a [...] to report scalp itchiness . Patient speaks Estonian. Advised triage nurse will call patient back. documented in this encounter Plan of Treatment Not on file documented as of this encounter Visit Diagnoses Not on filedocumented in this encounter Additional Health Concerns Assessment Noted Time PHQ-9 Depression Total Score: 11 023 11:39 AM EDT documented as of this encounter Care Teams Smokehouse Operator Relationship Specialty Start Date End Date Drea Tapia MD [address] [place] [phone] PCP - General Internal Medicine 09/22/22 documented as of this encounter
[2024-10-30 18:21] LABS: Folate 10.3 ng/mL (> or = 4.0); Vitamin B12 363 pg/mL (200-900)
[2024-11-01 08:50] LABS: H Pylori Breath Test Negative (Negative)
[2024-11-03 14:38] LABS: Vitamin D 25-OH, D2 <4 ng/mL; Vitamin D 25-OH, D3 13 ng/mL; Vitamin D 25-OH, Total 13 ng/mL (30-100)
== END 2024-10-30 15:11 | disposition home or self-care (01) ==
LOC: HO.LAB 15:10
PROVIDERS: PCP Student in an Organized Health Care Education/Training Program; Visit Provider Nurse Practitioner Family
DX: R19.7 Diarrhea, unspecified (principal); E55.9 Vitamin D deficiency, unspecified; K21.9 Gastro-esophageal reflux disease without esophagitis
CPT/HCPCS: 36415; 82306; 82607; 82746; 83013

== ENCOUNTER 2024-10-30 15:10 | Outpatient (AMB) | payer OTHER, SELFPAY ==
--- OUTSIDE RECORDS SUMMARY | 2024-10-30 15:13 | XMS_ITS | Encounter Summary ---
Author Organization [employer] Address [address] [place] [address] [address] [place] [address] Care Team Providers Care Co Founder And Ceo Name Role Phone Drea Tapia MD Primary Care Pro vider Reason for Visit * Reason Onset Date Comments Nurse Triage 03/11/2023 Encounter Details Date Type Department Care Team (Late st Contact Info) Description 03/11/2023 Telephone [facility] [address] [place] [address] Drea Tapia MD [address] [place] [address] Nurse Triage Social History Tobacco Use Types Packs/Day Years Used Date Smoking Tobacco: Never Passive Smoke Exposure: Never Smokeless Tobacco: Never Alcohol Use Standard Drinks/Week Comments Yes 0 (1 standard drink = 0.6 oz pur e alcohol) social Depression Answer Date Recorded Patient Health Questionnaire-9 Score 11 11/26/2022 Depression Answer Date Recorded Patient Health Questionnaire-2 Score 2 11/26/2022 Sex and Gender Information Value Date Recorded Sex Assigned at Male 04/13/2022 10:18 AM EDT Legal Sex Male 10:18 AM EDT Gender Identity Male 04/13/2022 10:18 AM EDT Sexual Orientation Straight 04/13/2022 10 :18 AM EDT documented as of this encounter Miscellaneous Notes * Telephone Encounter - Sabina Mc RN - 03/11/2023 1:03 PM EDT Triage call Pt reports chronic itchy scalp, flaking with reddened areas. Pt reports is scratching but, no open areas. Pt reports this is a chronic problem which has been treated by mixer blender withsome , pills and shampoo about a month or two ago but, it always comes back. Pt has missed aptsbefore because of work schedule. Pt is given ASK apt with provider Romina 03/23/23 @ 1115am. Insurance is verified as active at time of booking. Protocol Used: No Protocol Available (Adult) Protocol-Based Disposition: See in Office or Video Visit within 2 Weeks Video visit not offered Positive Triage Question: * Nursing judgment * All higher-acuity triage questions were negative Care Advice Discussed: * Reasons To Call Back - New symptoms develop - You become worse * Telephone Encounter - Denise Owens - 03/11/2023 12:46 PM EDT Patient calling to report scalp itchiness . Patient speaks Urdu. Advised triage nurse will call patient back. documented in this encounter Plan of Treatment Not on file documented as of this encounter Visit Diagnoses Not on filedocumented in this encounter Additional Health Concerns Assessment Noted Time PHQ-9 Depression Total Score: 11 023 11:39 AM EDT documented as of this encounter Care Teams Co Founder And Ceo Relationship Specialty Start Date End Date Drea Tapia MD [address] [place] [id number] PCP - General Internal Medicine 09/22/22 documented as of this encounter
--- OUTSIDE RECORDS SUMMARY | 2024-10-30 15:13 | XMS_ITS | Clinical Summary ---
Author Organization [employer] Address [address] [facility] [address] [place] [address] Care Team Providers Care Battery Technician Name Role Phone Drea Tapia MD Primary Care Pro vider Allergies No known active allergies Medications * This document contains information received from the source organization and may not represent a complete record from that organization. albuterol (ProAir HFA) 108 (90 Base) MCG/ACT inhaler Inhale 1 puff Every 4-6 hours as needed for wheezing or shortness of breath. 18 g 2 3 Active Sod Fluoride-Potass ium Nitrate 1.1-5 % paste Please use pea size to brush teeth twice daily. Spit after brushing, do not rinse. 112 g 1 3 Active cetirizine (ZyrTEC) 10 MG tablet Take 1 tablet (10 mg) by mouth Once per day. 30 tablet 4 Active famotidine (Pepcid) 20 MG tabletIndicatio ns:Bloating Take 1 tablet (20 mg) by mouth if needed at bedtime for heartburn. 30 tablet 1 4 Active benzoyl peroxide (Benzac AC) 10 % external wash Apply topically 2 times daily. 148 g 3 4 10/08/19 25 Active Problems Problem Noted Date Diagnosed Date Finger lesion 04/01/2024 Asthma 10/09/2022 Assessment & Plan (11/26/2022 7:14 PM EDT): Reports to be well controlled -sometimes needs it only if doing activity ,rare to use albuterol > 2 times a month -albuterol prn Assessment & Plan (10/09/2022 8:55 PM EDT): Reports to be well controlled -sometimes needs it only if doing activity ,rare to use albuterol > 2 times a month -albuterol prn Severe episode of recurrent major depressive disorder, without psychotic features 10/09/2022 Assessment & Plan (11/26/2022 7:21 PM EDT): PHQ9:today is 11 from 7 at last visit Hx of depression ,there was a concern x hypomaniac symptoms , eval pt and w no concern x bipolar dx only depression. From records px had zoloft d/t GI side effects ,also there was a record That could not tolerate escitalopram d/t decreased appetitie and mirtaz dced. d/t sleepiness States also he took Fluoxetine 10mg but stopped several months ago because he was nor feeling much help. -currently taking consistently escitalopram 10 mg -tolerating well,despite higher PQH9 today pt states feeling better and maybe was not accurate 1st PHQ9? -will increase escitalopram to 15 mg for couple of weeks and then to stake 20 mg tab a day -continue w his psychotx--currently here via televist and saw today here - seems his insurance not covered for his current outside psychotx any more per pt --[place] will check about that -RTC in 6 weeks to monitor depression Assessment & Plan (10/27/2022 2:28 PM EDT): Assessment: Patient with previous hx of decreased pleasure in previous enjoyable activities, difficulty falling asleep, tiredness, low energy, poor appetite, low self concept, difficulty concentrating, decreased attention, lack of motivation, racing thoughts, worry and hopelessness in the context of no particular bio-psychosocial stressors. Patient will benefit from antidepressant medication, along with basic CBT skills along with medication in a sporadic Integration setting thorough short focused interventions. At this time Rahul Ryan meets criteria for Visit Diagnoses: Problem List Items Addressed This Visit Other Moderate episode of recurrent major depressive disorder (CMS/HCC) Patient ready to address current needs Yes Strengths include Desire to engage in treatment plan to manage depressive sxs PLAN: 1. Follow up with C: Recommended for follow-up: One week with I 2. Patient goal is Increase motivation 3. Behavioral Recommendations a. Begin antidepressant medication with PCP F/u b. Engage in behavioral activation plan and skills provided during [facility] intervention Assessment & Plan (10/22/2022 4:23 PM EDT): PHQ9:7 at last visit Hx of depression ,there was a concern x hypomaniac symptoms , BH eval pt and w no concern x bipolar dx only depression. From records px had zoloft d/t GI side effects ,also there was a record That could not tolerate escitalopram d/t decreased appetitie and mirtaz dced. d/t sleepiness States also he took Fluoxetine 10mg but stopped several months ago because he was nor feeling much help. -currently started escitalopram here 2 weeks ago--tolerating now well -continue w his psychotx--currently here via televist-next apt x 11/16/22 and to continue care w previous outside psychtx? -RTC in 4 weeks to monitor depression and eval if need to increase dose Assessment & Plan (10/09/2022 9:03 PM EDT): PHQ9:7 Hx of depression ,there was a concern x hypomaniac symptoms , requested today to eval pt and after eval there was no concern for service about Bipolar dx mainly depression From records px had zoloft d/t GI side effects ,also there was a record That could not tolerate escitalopram d/t decreased appetitie and mirtaz dced. d/t sleepiness States also he took Fluoxetine 10mg but stopped several months ago because he was nor feeling much help. -escitalopram was prescribed today 10 mg -( found record of poor appetite SE after med was prescribed ) but will try and reeval at his next visit -continue w his psychotx -has been f w service outside of this clinic -RTC in 2 weeks to monitor x SE Scalp irritation 10/09/2022 Assessment & Plan (11/26/2022 7:20 PM EDT): -continue care w special procedure technologist -px minocycline x 2 months Assessment & Plan (10/22/2022 4:21 PM EDT): -trying now w ketoconazole shampoo -improving -referred back to special procedure technologist x chronic condition-has apt already x 11/17/2022 Assessment & Plan (10/09/2022 9:01 PM EDT): -trial w ketoconazole shampoo -referred back to special procedure technologist Health care maintenance 10/09/2022 Assessment & Plan (11/26/2022 7:19 PM EDT): -vaccines: s/p HPVx3,s/p COVID 19 x3-and Bivalent ,td in 2021, hep B not immune -started series-2nd dose today -will offer p20 at next visit x asthma hx Assessment & Plan (10/22/2022 4:22 PM EDT): -vaccines: s/p HPVx3,s/p COVID 19 x3-today to get here Bivalent ,td in 2021, hep B not immune -to start series today here -2nd dose to give at next visit in 4 weeks Assessment & Plan (10/09/2022 9:02 PM EDT): -vaccines: s/p HPVx3,s/p COVID 19 x3---advised today to get booster w Bivalent at vaccine clinic, td in 2021 Allergic rhinitis 04/14/2012 Assessment & Plan (11/26/2022 7:19 PM EDT): Follows w specialist Resolved Problems Problem Noted Date Diagnosed Date Resolved Date Moderate persistent asthma 06/20/2015 0 10/22/2022 Encounters Date Type Department Care Team Description 08/21/2024 Telephone [facility] MEDICINE [address] [place] [phone] Drea Tapia MD May recall from Last 3 Months Immunizations Immunization Administration Dates Next Due DTaP 01/23/2004, 1,08/23/2000,07/26,02/12/2000 HPV, Quadrivalent 10/31/2012,12/22/2011,09/14/19 12 Hep A, ped/adol, 2 dose 04/05/2017,01/23/2016 Hep B, Adolescent or Pediatric 06/16/2000,1999,02/12/2000 Hep B, adult 05/13/2023,11/26/2022,10/22/2022 Hib (HbOC) 03/07/2001,06/16/2000,02/12/2000 IPV 01/23/2004, 1,04/15/2000,02/11 Influenza injectable quadriv alent preservative free 03/23/2023,03/20/2022,05/26/2019,06/30,04/05/2017,03/06/2015 Influenza, IIV3, injectable 05/21/2008, 7 Influenza, Split (incl. ganesh fied surface antigen) 03/06/2013,04/14/2012 Influenza, seasonal, injecta ble, preservative free 03/31/2024 MMR 01/23/2004,12/13/2000 Meningococcal MCV4P ACYW-135 01/23/2016,11/01/19 13 Pfizer Covid-19 Vaccine 12+ 03/31/2024 Pfizer Covid-19 Vaccine 12+ Bivalent 10/22/2022 Pneumococcal Conjugate PCV 20 11/11/2023 TD (adult), 2 Lf tetanus tox oid, preservative free, adsorbed 03/20/2022 Tdap 09/14/2011 Varicella 10/17/2007,12/13/2000 Family History Medical History Relation Name Comments Lymphoma Father Depression Mother Colon cancer Paternal Grandfather DM2 Paternal Grandmother Relation Name Status Comments Father Mother Paternal Grandfather Paternal Grandmother Social History Tobacco Use Types Packs/Day Years Used Date Smoking Tobacco: Never Passive Smoke Exposure: Never Smokeless Tobacco: Never Tobacco Cessation:Counseling Given: Not Answered Alcohol Use Standard Drinks/Week Comments Not Currently 0 (1 standard drink = 0.6 oz pur e alcohol) Depression Answer Date Recorded Patient Health Questionnaire-9 Score 3 10/08/2023 Patient Health Questionnaire-9 Score 3 10/08/2023 Last PHQ-9: Questionnaire Data Not on file 0 10/08/2023 Housing Stability Answer Date Recorded What is your housing situation today? I have ben gonzales 04/17/[address] you li ve. Do you have problems with any of the following? None of the above 04/17/2023 Food Insecurity Answer Date Recorded Within the past 12 months, y ou worried that your food would run out before you got money to buy more: Never True 04/17/2023 Within the past 12 months,th e food you bought just didn't last and you didn't have enough money to get more: Never True 09/2022 Transportation Answer Date Recorded In the past 12 months, has l ack of transportation kept you from medical appts, meetings, work or from getting things needed for daily living? No 04/17/2023 Utilities Answer Date Recorded In the past 12 months, has t he electric, gas, oil or water company threatened to shut off services in your home? No 04/17/2023 Depression Answer Date Recorded Patient Health Questionnaire-2 Score 0 10/08/2023 Sex and Gender Information Value Date Recorded Sex Assigned at Male 04/13/2022 10:18 AM EDT Legal Sex Male 10:18 AM EDT Gender Identity Male 04/13/2022 10:18 AM EDT Sexual Orientation Straight 04/13/2022 10 :18 AM EDT Last Filed Vital Signs Vital Sign Reading Time Taken Comments Blood Pressure 126/70 03/31/2024 9:35 AM EDT Pulse 85 03/31/2024 9:35 AM EDT Temperature 36.2 ??C (97.1 ??F) 03/31/2024 9:35 AM ED T Respiratory Rate 18 03/31/2024 9:35 AM EDT Oxygen Saturation 98% 03/31/2024 9:35 AM EDT Inhaled Oxygen Concentration - - Weight 70.5 kg (155 lb 6.4 oz) 03/31/2024 9:35 A M EDT Height 175.3 cm (5' 9 ) 03/31/2024 9:35 AM EDT Body Mass Index 22.95 03/31/2024 9:35 AM EDT Plan of Treatment Health Maintenance Due Date Last Done Comments Alcohol/Substance Use Screening 2011 Family Planning (PISQ) 12/05/2014 Dental Prophylaxis 11/24/2017 05/25/2017 Dental Oral Exam 12/11/2023 06/10/2023, 05/2017, 05/25/2017 Dental X-Ray: Bitewings 06/11/2024 06/10/2023, 05/25 SDOH Screening 09/29/2024 09/30/2023 Depression Screening 10/07/2024 10/08/2023, 10/08/19 24 Tobacco Screening 03/31/2025 03/31/2024 Dental X-Ray: Full Mouth 06/11/2026 06/10/2023 DTaP/Tdap/Td Vaccines (8 - Td or Tdap) 03/20/2032 03/20/2022, 09/14/2011, 01/23/2004, Additional history exists Zoster Vaccines (1 of 2) 12/05/2049 RSV Patients and Patients Aged 60 years or older (1 - 1-dose 75+ series) 12/05/2074 HIB Vaccines Completed 03/07/2001, 08/2000, 02/12/2000, Additional history exists IPV Vaccines Completed 01/23/2004, 08/2000, 04/15/2000, Additional history exists HPV Vaccines Completed 10/31/2012, 12/12, 09/14/2011 Meningococcal Vaccine Completed 01/23/2016, 013 Hepatitis A Vaccines Completed 04/05/2017, 01/23/20 16 Hepatitis B Vaccines Completed 05/13/2023, 11/26/2022, 10/22/2022, Additional history exists HIV Screening Completed 11/09/2023, 10/09/2022 Hepatitis C Screening Completed 11/09/2023, 023 Pneumococcal Vaccine: Pediatrics (0 to 5 Years) and At-Risk Patients (6 to 49) Years) Completed 11/11/2023 COVID-19 Vaccine Completed 03/31/2024, 04/2023, 09/16/2021, Additional history exists Influenza Vaccine Completed 03/31/2024, , 03/20/2022, Additional history exists Meningococcal B Vaccine Aged Out No l onger eligible based on patient's age to complete this topic RSV under 20 months Aged Out No longe r eligible based on patient's age to complete this topic Rotavirus Vaccines Aged Out No longer eligible based on patient's age to complete this topic Procedures Procedure Name Priority Date/Time Associated Diagnosis Comments HEPATITIS C AB W/REFL TO HCV RNA, QN, PCR Routine 11/09/2023 8:32 AM EDT Annual physical exam HIV 1/2 ANTIGEN/ANTIBODY, FOURTH GENERATION W/RFL Routine 11/09/2023 8:32 AM EDT Annual physical exam INTRAORAL - COMPLETE SERIES OF RADIOGRAPHIC IMAGES Routine 06/10/2023 1:30 PM EST PERIODIC ORAL EVALUATION - ESTABLISHED PATIENT Routine 06/10/2023 1:30 PM EST PROPHYLAXIS - ADULT Routine 05/25/2017 1 2:00 AM EST from Last 3 Months or Most Recently Relevant to Health Maintenance Results * Hepatitis C Antibody with Reflex to HCV, RNA, Quantitative, Real-Time PCR (11/09/2023 8:32 AM EDT) Hepatitis C Antibody Nonreactive Nonreactive [facility] Comment:Antibodies to HCV no t detected; does not exclude early acuteHCV infection. Blood Venous blood specimen / Unknown 11/09/2023 8:32 AM EDT 11/09/2023 11:34 AM EDT us Drea Oconnell MD LAB BLOOD ORDERAB LES Final Result [facility] [address] [place] [phone] * HIV-1/2 Antigen and Antibodies, Fourth Generation, with Reflexes (11/09/2023 8:32 AM EDT) HIV AB/AG Nonreactive Nonreactive [facility] Comment:HIV-1 p24 Ag and/or HIV-1/HIV-2 Ab not detected.A test result that is nonreactive does not exclude thepossibility of exposure to or infection with HIV-1 and/orHIV-2. Nonreactive results in this assay for individualswith prior exposure to HIV-1 and/or HIV-2 may be due toantigen and antibody levels that are below the limit ofdetection of this assay.[employer] HIV Ag/Ab Combo assay result andsupplemental assay results should be interpreted inconjunction with the patient's clinical presentation,history and other laboratory results. If the results areinconsistent with clinical evidence, additional testing issuggested to confirm the result. Blood Venous blood specimen / Unknown 11/09/2023 8:32 AM EDT 11/09/2023 11:34 AM EDT Drea Oconnell MD LAB BLOOD ORDERAB LES Final Result [facility] [address] [place] [phone] from Last 3 Months or Most Recently Relevant to Health Maintenance Insurance [facility] - HSN PARTIAL (MEDICAID) Care Teams Battery Technician Relationship Specialty Start Date End Date Drea Tapia MD [address] [place] [address] PCP - General Internal Medicine 09/22/22
--- NOTE | 2024-10-30 15:28 | A.OFFVIS_ITS ---
Vital Signs 10/30/24 15:34 Height 5 ft 6 in Weight 154 lb BMI 24.9 BP 115/68 Blood Pressure Location Lt brachial Position Sitting Pulse 84 Pulse Oximetry (%) 100 Oxygen Delivery Method Room Air Intake Visit Reasons: Gastroesophageal reflux disease (GERD) Intake Note: Patient new consult for GERD. Patient cc: Left abdominal side with discomfort, between loose stool and constipation, usually in the morning with acid reflux with burning sensation. Management Lecturer Required: No Accompanied by: Self / Same As Patient Allergies Seasonal Allergies Adverse Reaction (Unknown, Verified 10/30/24 15:28) Runny Nose Medication List - Last Reconciled 10/30/24 by Seema Robb, EXPLOSIVE OPERATOR BOMB- albuterol sulfate 2.5 mg (3 mL) inhalation Q4-6H PRN fluticasone propionate 50 mcg/actuation (Flonase Allergy Relief) 2 sprays intranasal DAILY selenium sulfide 1% 1 appl topical DAILY 7 days HPI HPI Gastroesophageal reflux disease (GERD): Details: 23-year-old male with no significant past medical history is here today for initial consultation. Patient is here today reporting epigastric pain postprandially. Patient reports waking up in the morning feeling nauseous. Denies vomiting. Patient reports that he usually does not eat breakfast. Patient reports that he moves his bowels without any issues. Denies melena, hematochezia. Patient reports occasional dyspepsia without dysphagia or odynophagia. Patient reports that he is not eating spicy food. Occasionally he will eat fast food. He is not following any particular diet. [facility] Medical History Asthma Surgical History History of excision of mass (05/14/22) Family History Father Lung cancer Social History Alcohol intake: never Patient Tobacco Use Status: Never used Tobacco Review of Systems Const Denies weight gain and Denies weight loss ENT Reports no additional complaints, Denies dysphagia and Denies odynophagia Card Reports no additional complaints Resp Reports no additional complaints GI Reports abdominal pain (LUQ), Denies belching, Denies melena, Reports bloating, Denies change in bowel habits, Reports constipation, Denies dysphagia, Denies excessive flatus, Denies dyspepsia, Denies heartburn, Denies diarrhea, Reports loose stools, Denies nausea, Denies odynophagia and Denies vomiting Reports no additional complaints Musc Reports no additional complaints Neuro Reports no additional complaints Psych Reports no additional complaints Endo Reports no additional complaints Physical Exam Vital Signs: Last Vital Signs Pulse 84 10/30/24 15:34 BP 115/68 10/30/24 15:34 Pulse Ox 100 10/30/24 15:34 Oxygen Delivery Method Room Air 10/30/24 15:34 BMI result Body Mass Index 24.9 Const General: healthy appearing, no acute distress and well developed Nutritional Appearance: well nourished Orientation/consciousness: patient oriented x3 Resp Effort & Inspection: normal respiratory effort, able to speak in complete sentences, no tracheal deviation and symmetric chest movement Auscultation: clear to auscultation bilaterally Cardio Rate: regular rate GI Inspection: Yes normal to inspection and No distended Palpation (GI): Soft to palpation, not firm, nontender and No hepatosplenomegaly present Auscultation: normal bowel sounds General: Yes no CVA tenderness Back/Spine/Pelvis Back: no CVA tenderness Skin General skin exam: elasticity normal, turgor normal and dry skin Neuro General: patient oriented x3 Psych Appearance: grossly normal Mental Status: mental status grossly normal Assessment & Plan Assessment & Plan (1) Postprandial epigastric pain: Code(s): R10.13 - Epigastric pain (2) GERD (gastroesophageal reflux disease): Code(s): K21.9 - Gastro-esophageal reflux disease without esophagitis Qualifiers: Esophagitis presence: esophagitis presence not specified Qualified Code(s): K21.9 - Gastro-esophageal reflux disease without esophagitis (3) Postprandial abdominal bloating: Code(s): R14.0 - Abdominal distension (gaseous) Plan H pylori breath test in the office today. If positive will treat empirically. Will check vitamin B12, folate, vitamin-D level. Patient ready had transglutaminase checked and was normal. Discussed with patient the importance of avoiding dietary triggers and late night snacking. Staying upright is for minimum 3 hours after meals discussed with patient. Patient will return in 3-4 months, sooner on as needed basis. Patient is agreeable to current plan of care verbalizes understanding of instructions. He was given the opportunity to ask questions and all questions answered Thank you for allowing me to participate in his care Orders: Orders Vitamin B12 and Folate 10/30/24 R19.7 - Diarrhea, unspecified H Pylori Breath Test 10/31/24 K21.9 - Gastro-esophageal reflux disease without esophagitis Vitamin D 25-OH (D2 and D3) 10/30/24 E55.9 - Vitamin D deficiency, unspecified Medications: New pantoprazole take one tablet half an hour before breakfast 40 mg PO DAILY 30 tabs 2RF K21.9 - Gastro-esophageal reflux disease without esophagitis Coding Level of Care Code New Pt Level 3 (66295) Diagnoses Postprandial epigastric pain R10.13 Gastroesophageal reflux disease, unspecified whether esophagitis present K21.9 Esophagitis presence: esophagitis presence not specified Postprandial abdominal bloating R14.0 Time Spent (min) 40 Comment 30 minutes spent with patient and additional 10 minutes spent reviewing his records
[2024-10-30 15:34] VITALS: BP 115/68; PULSE 84; O2SAT 100; BMI 24.9
== END 2024-10-30 16:20 | disposition home or self-care (01) ==
LOC: HO.HGI 15:10
PROVIDERS: PCP Student in an Organized Health Care Education/Training Program; Visit Provider Nurse Practitioner Family
DX: R10.13 Epigastric pain (principal); K21.9 Gastro-esophageal reflux disease without esophagitis; R14.0 Abdominal distension (gaseous)
CPT/HCPCS: 99203

== ENCOUNTER 2024-12-25 17:29 | Outpatient (REF) | payer OTHER, SELFPAY | END 2024-12-25 17:30 | disposition home or self-care (01) | LOC: HO.HHCLNP 17:29 | PROVIDERS: Visit Provider Internal Medicine | DX: N50.89 Other specified disorders of the male genital organs (principal) | CPT/HCPCS: 87255 ==

== ENCOUNTER 2025-03-02 15:30 | Outpatient (AMB) | payer OTHER, SELFPAY ==
--- OUTSIDE RECORDS SUMMARY | 2025-03-02 15:32 | XMS_ITS | Clinical Summary ---
Author Organization [employer] Address [address] [facility] 7t [place] [address] Care Team Providers Care Landfill Grader Name Role Phone Drea Tapia MD Primary [...] for heartburn. 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 Valtrex twice daily x 7 days, patient will call back as needed if he has recurrent symptoms and follow-up with PCP STI testing done at [facility] today, he will follow-up with them this week Advised to use condoms at all times and use of dental dam for oral sex if needed, declined to receive condoms or dental exams. Finger lesion 04/01/2024 Asthma 10/09/2022 Assessment & [...] current outside psychotx any more per pt --Elton will check about that -RTC in 6 [...] a sporadic Integration setting thorough short focused BH interventions. At this time Rahul Ryan meets criteria for Visit Diagnoses: Problem List Items Addressed This Visit Other Moderate episode of recurrent major depressive disorder (CMS/HCC) Patient ready to address current needs Yes Strengths include Desire to engage in treatment plan to manage depressive sxs PLAN: 1. Follow up with [facility]: Recommended for follow-up: One week with [facility] 2. Patient goal is Increase motivation 3. [...] concern x hypomaniac symptoms , requested today BH to eval pt and after eval there [...] (11/26/2022 7:20 PM EDT): -continue care w tack puller -px minocycline x 2 months Assessment & Plan (10/22/2022 4:21 PM EDT): -trying now w ketoconazole shampoo -improving -referred back to tack puller x chronic condition-has apt already x 11/17/2022 Assessment & Plan (10/09/2022 9:01 PM EDT): -trial w ketoconazole shampoo -referred back to tack puller Health care maintenance 10/09/2022 Assessment & Plan [...] Encounters Date Type Department Care Team Description 01/01/2025 Orders Only [facility] [address] [place] [phone] Laurence Grimaldo RN 12/27/2024 Telephone [facility] [address] [place] [address] Drea Tapia MD Results 12/25/2024 2:20 PM EDT Office Visit [facility] [address] [place] [address] Karlee Nichols MD Ulcers of genital organ in male (Primary Dx) 12/25/2024 Travel from Last 3 Months Immunizations Immunization Administration Dates Next Due DTaP 01/23/2004, 1,08/23/2000,07/26,02/12/2000 HPV, Quadrivalent 10/31/2012,12/22/2011,09/14/19 12 Hep A, ped/adol, 2 dose 04/05/2017,01/23/2016 Hep B, Adolescent or Pediatric 06/16/2000,1999,02/12/2000 Hep B, adult 05/13/2023,11/26/2022,10/22/2022 Hib (HbO) 03/07/2001,06/16/2000,02/12/2000 IPV 01/23/2004, 1,04/15/2000,02/11 Influenza injectable quadriv [...] Sign Reading Time Taken Comments Blood Pressure 128/80 12/25/2024 3:05 PM EDT Pulse 116 12/25/2024 3:05 PM EDT Temperature 36.8 C (98.3 F) 12/25/2024 3:05 PM EDT Respiratory Rate 17 12/25/2024 3:05 PM EDT Oxygen Saturation 98% 03/31/2024 9:35 AM EDT Inhaled Oxygen Concentration - - Weight 70.8 kg (156 lb) 12/25/2024 3:05 PM EDT Height 175.3 cm (5' 9 ) 12/25/2024 3:05 PM EDT Body Mass Index 23.04 12/25/2024 3:05 PM EDT Plan of Treatment Health Maintenance Due Date Last Done Comments Disability Screening 1999 Alcohol/Substance Use Screening 2011 Family Planning (PISQ) 12/05/2014 Dental Prophylaxis 11/24/2017 05/25/2017 Dental Oral Exam 12/11/2023 06/10/2023, 05/2017, 05/25/2017 Dental X-Ray: Bitewings 06/11/2024 06/10/2023, 05/25 SDOH Screening 09/29/2024 09/30/2023 Depression Screening 10/07/2024 10/08/2023, 10/08/19 24 Influenza Vaccine (#1) 2025 , 03/23/2023, 03/20/2022, Additional history exists Tobacco Screening 12/25/2025 12/25/2024 Dental X-Ray: Full Mouth 06/11/2026 06/10/2023 DTaP/Tdap/Td [...] Completed 05/13/2023, 11/26/2022, 10/22/2022, Additional history exists Pneumococcal Vaccine: Pediatrics (0 to 5 Years) and At-Risk Patients (6 to 49) Years Completed 11/11/2023 COVID-19 Vaccine Completed 03/31/2024, 04/2023, 09/16/2021, Additional history exists HIV Screening Completed 12/25/2024, 10/13, 10/09/2022 Hepatitis C Screening Completed 12/25/2024 , 11/09/2023, 10/09/2022 Meningococcal B Vaccine Aged Out No l onger eligible based on patient's age to complete this topic RSV under 20 months Aged Out No longe r eligible based on patient's age to complete this topic Rotavirus Vaccines Aged Out No longer eligible based on patient's age to complete this topic Procedures Procedure Name Priority Date/Time Associated Diagnosis Comments HERPES SIMPLEX VIRUS CULTURE Routine 12/25/2024 3:48 PM EDT Ulcers of genital organ in male HIV ANTIBODY/ANTIGEN ([place] DPH) Routine 12/25/2024 HEPATITIS C ANTIBODY ([place] DPH) Routine 12/25/2024 SYPHILIS ABS ([place] DPH) Routine 12/25/2024 CHLAMYDIA/GONORRHEA - URINE ([place] D[facility]) Routine 12/25/2024 CHLAMYDIA/GONORRHEA THROAT SWAB ([place] DPH) Routine 12/25/2024 INTRAORAL - COMPLETE SERIES OF RADIOGRAPHIC IMAGES Routine 06/10/2023 1:30 PM EST PERIODIC ORAL EVALUATION - ESTABLISHED PATIENT Routine 06/10/2023 1:30 PM EST PROPHYLAXIS - ADULT Routine 05/25/2017 1 2:00 AM EST from Last 3 Months or Most Recently Relevant to Health Maintenance Results * Herpes Simple Virus Culture (12/25/2024 3:48 PM EDT) Herpes Virus Culture SEE NOTE [facility] Comment:HERPES SIMPLEX VIRUS CULTURE Micro Number: [id number] Test Status: Final Specimen Source: Genital Specimen Quality: Adequate HSV Culture: Not IsolatedTHIS TEST WAS PERFORMED AT:[facility] [id number] MERATI,MD Swab Urethral structure / Unknown 12/25/2024 3:48 PM EDT 12/25/2024 5:30 PM EDT Narrative [facility] - 12/29/2024 12:08 PM EDT GENITAL ORGAN Karlee Nichols MD LAB MICROBIOLOGY - GENER AL ORDERABLES Final Result [facility] [address] [place] [phone] * Chlamydia/Gonorrhea Throat Swab ([place] D[facility]) (12/25/2024) Chlamydia Throat Swab Negative Gonorrhea Throat Swab Negative Swab 12/25/2024 Result [facility] Provider LAB MICROBIOLOGY - GENERA L ORDERABLES Final Result * Chlamydia/Gonorrhea, Urine ([place] D[facility]) (12/25/2024) Chlamydia, Urine Negative Negative, Indeterminate, None Detected, Invalid, Specimen unsatisfactory for evaluation, Weakly Positive, 2+ Gonorrhea, Urine Negative Negative, Indeterminate, None Detected, Invalid, Specimen unsatisfactory for evaluation, Weakly Positive, 2+ Urine 12/25/2024 Historical Provider LAB URINE ORDERABLES Chayito l Result * Syphilis Antibodies (DPH) (12/25/2024) Syphilis Abs Nonreactive Borderline, Nonreactive, Weakly Reactive, Inconclusive, Specimen unsatisfactory for evaluation Blood Venous blood specimen / Unknown 12/25/2024 Historical Provider LAB BLOOD ORDERABLES Chayito l Result * Hepatitis C Antibody ([place] [facility]) (12/25/2024) Hepatitis C Ab Nonreactive Blood 12/25/2024 Historical Provider MD LAB BLOOD ORDERABLES Chayito l Result * HIV Ab/Ag ([facility]) (12/25/2024) HIV Ag/Ab Nonreactive Blood 12/25/2024 Historical Provider LAB BLOOD ORDERABLES Chayito l Result from Last 3 Months Insurance [employer] Care Teams Landfill Grader Relationship Specialty Start Date End Date Drea Tapia MD [address] [place] [phone] PCP - General Internal Medicine 09/22/22
--- OUTSIDE RECORDS SUMMARY | 2025-03-02 15:32 | XMS_ITS | Encounter Summary ---
Author Organization [employer] Address [address] [place] [address] 7 [place] [address] Care Team Providers Care Machine Cleaner Name Role Phone Drea Tapia MD Primary Care Pro vider Reason for Visit * Reason Onset Date Comments Nurse Triage 03/11/2023 Encounter Details Date Type Department Care Team (Late st Contact Info) Description 03/11/2023 Telephone [facility] [address] [place] [address] Drea Tapia MD [address] [place] [address] Nurse Triage Social History Tobacco Use Types [...] chronic problem which has been treated by associate loan officer withsome , pills and shampoo about a [...] to report scalp itchiness . Patient speaks Nigerian. Advised triage nurse will call patient back. documented in this encounter Plan of Treatment Not on file documented as of this encounter Visit Diagnoses Not on filedocumented in this encounter Additional Health Concerns Assessment Noted Time PHQ-9 Depression Total Score: 11 023 11:39 AM EDT documented as of this encounter Care Teams Machine Cleaner Relationship Specialty Start Date End Date Drea Tapia MD [address] [place] [phone] PCP - General Internal Medicine 09/22/22 documented as of this encounter
--- NOTE | 2025-03-02 15:39 | A.OFFVIS_ITS ---
Intake Visit Reasons: 4 months f/u Intake Note: Rahul presents in the offie as a 4 month follow up. CC: He states that he is not having any concerns at this time. VITALS 70kg weight BP - 129/81p P - 104 Public Relations Counselor Required: No Allergies Seasonal Allergies Adverse Reaction (Unknown, Verified 03/02/25 15:42) Runny Nose HPI HPI 4 months f/u: Details: LAST VISIT: Postprandial epigastric pain GERD (gastroesophageal reflux disease) Postprandial abdominal bloating Plan H pylori breath test in the office today. If positive will treat empirically. Will check vitamin B12, folate, vitamin-D level. Patient ready had transglutaminase checked and was normal. Discussed with patient the importance of avoiding dietary triggers and late night snacking. Staying upright is for minimum 3 hours after meals discussed with patient. Patient will return in 3-4 months, sooner on as needed basis. Patient is agreeable to current plan of care verbalizes understanding of instructions. He was given the opportunity to ask questions and all questions answered ? Thank you for allowing me to participate in his care Orders Vitamin B12 and Folate 10/30/24 R19.7 H Pylori Breath Test 10/31/24 K21.9 Vitamin D 25-OH (D2 and D3) 10/30/24 E55.9 New pantoprazole take one tablet half an hour before breakfast 40 mg PO DAILY 30 tabs 2RF K21.9 TODAY'S VISIT Patient is here today for follow-up and discuss lab results. Patient reports that he continues to have epigastric pain as well as left upper quadrant pain and bloating. Patient states that pantoprazole is not helping with his reflux. Reports dyspepsia without dysphagia or odynophagia continues to be constipated. Patient reports that he has to strain to have a bowel movement. Currently is not on any laxative. Patient is not drinking enough fluids. Patient denies any nausea or vomiting. Patient reports that pain is severe occasionally. He is not following any particular diet. [facility] Medical History Asthma Surgical History History of excision of mass (05/14/22) Family History Father Lung cancer Social History Alcohol intake: never Patient Tobacco Use Status: Never used Tobacco Review of Systems Const Denies weight gain and Denies weight loss ENT Reports no additional complaints, Denies dysphagia and Denies odynophagia Card Reports no additional complaints Resp Reports no additional complaints GI Reports abdominal pain (LUQ, epigastric), Denies belching, Denies melena, Reports bloating, Denies change in bowel habits, Reports constipation, Denies dysphagia, Denies excessive flatus, Denies dyspepsia, Reports heartburn, Denies diarrhea, Reports loose stools, Denies nausea, Denies odynophagia and Denies vomiting Reports no additional complaints Musc Reports no additional complaints Neuro Reports no additional complaints Psych Reports no additional complaints Endo Reports no additional complaints Physical Exam Const General: healthy appearing, no acute distress and well developed Nutritional Appearance: well nourished Orientation/consciousness: patient oriented x3 Resp Effort & Inspection: normal respiratory effort, able to speak in complete sentences, no tracheal deviation and symmetric chest movement Auscultation: clear to auscultation bilaterally Cardio Rate: regular rate GI Inspection: Yes normal to inspection and No distended Palpation (GI): Soft to palpation, not firm, nontender and No hepatosplenomegaly present Auscultation: normal bowel sounds General: Yes no CVA tenderness Back/Spine/Pelvis Back: no CVA tenderness Skin General skin exam: elasticity normal, turgor normal and dry skin Neuro General: patient oriented x3 Psych Appearance: grossly normal Mental Status: mental status grossly normal Assessment & Plan Assessment & Plan (1) Postprandial epigastric pain: Code(s): R10.13 - Epigastric pain (2) Gastroesophageal reflux disease: Code(s): K21.9 - Gastro-esophageal reflux disease without esophagitis Qualifiers: Esophagitis presence: esophagitis presence not specified Qualified Code(s): K21.9 - Gastro-esophageal reflux disease without esophagitis (3) Postprandial abdominal bloating: Code(s): R14.0 - Abdominal distension (gaseous) (4) Constipation: Code(s): K59.00 - Constipation, unspecified Qualifiers: Constipation type: slow transit constipation Qualified Code(s): K59.01 - Slow transit constipation Plan No tenderness to abdomen on PE. Patient will be sent for upper GI with barium swallow. He wants to hold off with upper endoscopy and wait after barium swallow testing. Patient will stop taking pantoprazole and we will start him on Nexium. Continue famotidine at bedtime. Patient was encouraged to avoid dietary triggers and late night snacking. Staying upright for minimum 3 hours after meals discussed with patient. Patient was encouraged to increase fluid intake and activity to promote better bowel motility. Patient will start taking senna in the evening to help with bowel movements. Follow-up in 2-3 months, sooner on as needed basis. He is agreeable to this plan and verbalizes understanding of instructions. He was given the opportunity to ask questions and all questions answered. Thank you for allowing me to participate in his care Orders: Orders FL upper GI w air w Ba Swallow Today K21.9 - Gastro-esophageal reflux disease without esophagitis Medications: New esomeprazole magnesium (Nexium) 40 mg PO DAILY 30 caps 3RF K21.9 - Gastro- esophageal reflux disease without esophagitis sennosides (Natural Senna Laxative) 17.2 mg (2 x 8.6 mg) PO BEDTIME 60 tabs 3RF constipation K59.00 - Constipation, unspecified Discontinued pantoprazole take one tablet half an hour before breakfast Discontinued Reason: Doctor's Order 40 mg PO DAILY 30 tabs 2RF K21.9 - Gastro-esophageal reflux disease without esophagitis Coding Level of Care Code Est Pt Level 4 (97467) Diagnoses Postprandial epigastric pain R10.13 Gastroesophageal reflux disease, unspecified whether esophagitis present K21.9 Esophagitis presence: esophagitis presence not specified Postprandial abdominal bloating R14.0 Slow transit constipation K59.01 Constipation type: slow transit constipation Time Spent (min) 40 Comment 25 minutes spent with patient and additional 15 minutes spent reviewing his records
== END 2025-03-02 15:57 | disposition home or self-care (01) ==
LOC: HO.HGI 15:30
PROVIDERS: PCP Student in an Organized Health Care Education/Training Program; Visit Provider Nurse Practitioner Family
DX: R10.13 Epigastric pain (principal); K21.9 Gastro-esophageal reflux disease without esophagitis; R14.0 Abdominal distension (gaseous); K59.01 Slow transit constipation
CPT/HCPCS: 99214

== ENCOUNTER 2025-03-13 10:11 | Outpatient (REF) | payer OTHER, SELFPAY ==
--- NOTE | ~2025-03-13 | FL_ITS ---
EXAMINATION: XR FLUOROSCOPY UPPER GI SERIES CLINICAL INFORMATION: Gastroesophageal reflux disease without esophagitis. Abdominal bloating. COMPARISON: None TECHNIQUE: Fluoroscopic air contrast upper GI examination was performed utilizing standard techniques with thin and thick barium and effervescent granules. Numerous spot images were obtained. Several fluoroscopic image hold cine sequences were also obtained. FINDINGS: UPPER GI SERIES: Lateral cine images of the oropharynx and hypopharynx demonstrate normal swallow mechanism with normal epiglottic inversion and soft palate elevation. No laryngeal penetration, glottic or subglottic aspiration identified. Hypopharyngeal structures appear normal without evidence of mass or diverticulum. There was no significant cricopharyngeal achalasia. Dual and single contrast images of the esophagus demonstrate normal caliber, contour, and mucosal pattern. No evidence of stricture, mass, or ulcerations identified. Esophageal peristalsis was normal. No evidence of hiatus hernia identified. No significant gastroesophageal reflux was seen during the course of the examination. Dual contrast and single contrast images of the stomach demonstrated normal contour and mucosal pattern without evidence of mass, ulceration, or other abnormality. Contrast freely passed into the gastric antrum and duodenal bulb without delay. Single and air-contrast images of the duodenal bulb demonstrate no abnormality. The duodenal sweep has a normal appearance, course, and mucosal fold appearance. Incidental note was rapid transit of contrast through the small bowel to the terminal ileum in approximately 3 minutes. The patient states he takes senna. FLUOROSCOPY TIME: 2 minutes, 34 seconds Number of Spot Images:10 Number of cines obtained: 9 DOSE AREA PRODUCT: [id number] uGy-m2 (microgray-meter squared) FL/FL upper GI w air w Ba Swallow IMPRESSION: 1. Essentially normal upper GI examination. Electronically signed by: Wu Pierson MD 03/13/2025 11:34 AM EDT
--- OUTSIDE RECORDS SUMMARY | 2025-03-13 11:15 | XMS_ITS | Encounter Summary ---
Author Organization [employer] Address [address] [place] [address] 7 [place] [address] Care Team Providers Care Stone Spreader Operator Name Role Phone Drea Tapia MD Primary Care Pro vider Reason for Visit * Reason Onset Date Comments Nurse Triage 03/11/2023 Encounter Details Date Type Department Care Team (Late st Contact Info) Description 03/11/2023 Telephone [facility] [address] [place] [address] Drea Tapia MD [address] [place] [address] Nurse Triage Social History Tobacco Use Types [...] chronic problem which has been treated by blow machine tender starch spraying withsome , pills and shampoo about a [...] to report scalp itchiness . Patient speaks Bahraini. Advised triage nurse will call patient back. documented in this encounter Plan of Treatment Not on file documented as of this encounter Visit Diagnoses Not on filedocumented in this encounter Additional Health Concerns Assessment Noted Time PHQ-9 Depression Total Score: 11 023 11:39 AM EDT documented as of this encounter Care Teams Stone Spreader Operator Relationship Specialty Start Date End Date Drea Tapia MD [address] [place] [phone] PCP - General Internal Medicine 09/22/22 documented as of this encounter
--- OUTSIDE RECORDS SUMMARY | 2025-03-13 11:15 | XMS_ITS | Clinical Summary ---
Author Organization [employer] Address [address] [facility] 7t [place] [address] Care Team Providers Care Support Teacher Name Role Phone Drea Tapia MD Primary [...] follow-up with PCP STI testing done at [facility] today, he will follow-up with them this [...] recurrent major depressive disorder, without psychotic features (CMS/HCC) 10/09/2022 Assessment & Plan (11/26/2022 7:21 PM [...] current outside psychotx any more per pt --Claiborne will check about that -RTC in 6 [...] skills along with medication in a sporadic BH Integration setting thorough short focused BH interventions. [...] (11/26/2022 7:20 PM EDT): -continue care w store clerk cashier -px minocycline x 2 months Assessment & Plan (10/22/2022 4:21 PM EDT): -trying now w ketoconazole shampoo -improving -referred back to store clerk cashier x chronic condition-has apt already x 11/17/2022 Assessment & Plan (10/09/2022 9:01 PM EDT): -trial w ketoconazole shampoo -referred back to store clerk cashier Health care maintenance 10/09/2022 Assessment & Plan [...] Department Care Team Description 01/01/2025 Orders Only [facility] [address] [place] [address] Laurence Grimaldo RN 12/27/2024 Telephone [facility] [address] [place], [place] [phone] Drea Tapia MD Results 12/25/2024 2:20 PM EDT Office Visit [facility] [address] [place] [address] Karlee Nichols MD Ulcers of genital organ [...] 09/29/2024 09/30/2023 Depression Screening 10/07/2024 10/08/2023, 10/08/19 Influenza Vaccine (#1) 2025 , 03/23/2023, 03/20/2022, [...] PM EDT) Herpes Virus Culture SEE NOTE [facility] Comment:HERPES SIMPLEX VIRUS CULTURE Micro Number: [id number] Test Status: Final Specimen Source: Genital Specimen Quality: Adequate HSV Culture: Not IsolatedTHIS TEST WAS PERFORMED AT:[facility] [id number] MERATI,MD Swab Urethral structure / Unknown 12/25/2024 3:48 PM EDT 12/25/2024 5:30 PM EDT Narrative [facility] - 12/29/2024 12:08 PM EDT GENITAL ORGAN Karlee Nichols MD LAB MICROBIOLOGY - GENER AL ORDERABLES Final Result [facility] [address] [place] [phone] * Chlamydia/Gonorrhea Throat Swab ([place] DPH) (12/25/2024) Chlamydia Throat Swab Negative Gonorrhea Throat Swab Negative Swab 12/25/2024 Result [facility] Historical Provider LAB MICROBIOLOGY - GENERA L ORDERABLES Final Result * Chlamydia/Gonorrhea, Urine ([place] DPH) (12/25/2024) Chlamydia, Urine Negative Negative, Indeterminate, None Detected, Invalid, Specimen unsatisfactory for evaluation, Weakly Positive, 2+ Gonorrhea, Urine Negative Negative, Indeterminate, None Detected, Invalid, Specimen unsatisfactory for evaluation, Weakly Positive, 2+ Urine 12/25/2024 Historical Provider MD LAB URINE ORDERABLES Chayito l Result * Syphilis Antibodies (DPH) (12/25/2024) Syphilis Abs Nonreactive Borderline, Nonreactive, Weakly Reactive, Inconclusive, Specimen unsatisfactory for evaluation Blood Venous blood specimen / Unknown 12/25/2024 Historical Provider LAB BLOOD ORDERABLES Chayito l Result * Hepatitis C Antibody ([place] D[facility]) (12/25/2024) Hepatitis C Ab Nonreactive Blood 12/25/2024 Historical Provider MD LAB BLOOD ORDERABLES Chayito l Result * HIV Ab/Ag ([facility]) (12/25/2024) HIV Ag/Ab Nonreactive Blood 12/25/2024 Historical Provider MD LAB BLOOD ORDERABLES Chayito l Result from Last 3 Months Insurance [employer] [place] [phone] Care Teams Support Teacher Relationship Specialty Start Date End Date Drea Tapia MD [address] [place] [phone] PCP - General Internal Medicine 09/22/22
== END 2025-03-13 10:12 | disposition home or self-care (01) ==
LOC: HO.XRAY 10:11
PROVIDERS: PCP Student in an Organized Health Care Education/Training Program; Visit Provider Nurse Practitioner Family
DX: K21.9 Gastro-esophageal reflux disease without esophagitis (principal)
CPT/HCPCS: 74246

== ENCOUNTER → 2025-03-13 10:13 | Outpatient (BNV) | payer OTHER, SELFPAY | PROVIDERS: PCP Student in an Organized Health Care Education/Training Program; Visit Provider Radiology Diagnostic Radiology | DX: K21.9 Gastro-esophageal reflux disease without esophagitis (principal); R14.0 Abdominal distension (gaseous) | CPT/HCPCS: 74246 ==

== ENCOUNTER 2025-05-29 15:31 | Outpatient (AMB) | payer OTHER, SELFPAY ==
--- NOTE | 2025-05-29 15:37 | A.OFFVIS_ITS ---
Vital Signs 05/29/25 15:46 Height 5 ft 6 in Weight 158 lb BMI 25.5 BP 148/86 H Blood Pressure Location Rt brachial Position Sitting Pulse 114 H Pulse Source Pulse Oximeter Pulse Oximetry (%) 97 Oxygen Delivery Method Room Air Intake Visit Reasons: 3m Intake Note: EST PATIENT for Bloating, GERD, gas mgmt. CC; C/O persistence of LUQ bloating and cramping. He states that his reflux and burning has lessened in severity since last visit. Viscosity Tester Required: No Accompanied by: Self / Same As Patient Allergies Seasonal Allergies Adverse Reaction (Unknown, Verified 03/02/25 15:42) Runny Nose HPI HPI 3m: Details: LAST VISIT Postprandial epigastric pain Gastroesophageal reflux disease Postprandial abdominal bloating Constipation Plan No tenderness to abdomen on PE. Patient will be sent for upper GI with barium swallow. He wants to hold off with upper endoscopy and wait after barium swallow testing. Patient will stop taking pantoprazole and we will start him on Nexium. Continue famotidine at bedtime. Patient was encouraged to avoid dietary triggers and late night snacking. Staying upright for minimum 3 hours after meals discussed with patient. Patient was encouraged to increase fluid intake and activity to promote better bowel motility. Patient will start taking senna in the evening to help with bowel movements. Follow-up in 2-3 months, sooner on as needed basis. He is agreeable to this plan and verbalizes understanding of instructions. He was given the opportunity to ask questions and all questions answered. ? Thank you for allowing me to participate in his care Orders FL upper GI w air w Ba Swallow Today K21.9 New esomeprazole magnesium (Nexium) 40 mg PO DAILY 30 caps 3RF K21.9 sennosides (Natural Senna Laxative) 17.2 mg (2 x 8.6 mg) PO BEDTIME 60 tabs 3RF constipation K59.00 Discontinued pantoprazole take one tablet half an hour before breakfast Discontinued Reason: Doctor's Order 40 mg PO DAILY 30 tabs 2RF K21.9 TODAY'S VISIT Patient is here today for follow-up. Patient reports that he continues to have left lower quadrant pain and severe abdominal bloating. Bowels fluctuate sometimes constipated and sometimes loose stools. Patient denies any melena, hematochezia, unintentional weight loss or ribbon like stools. However patient is concerned that his bowels behave this way and would like to go for colono scopy. Patient reports that acid reflux has been suppressed. Currently he is taking Nexium and symptoms of acid reflux has not happened since he changed the medication. Previously on pantoprazole. However patient reports that occasionally at bedtime he will have epigastric pain and bloating. Patient does admit that sometimes he will eat later at night. Patient had normal upper GI series with barium swallow. No reflux noted. Patient denies any trouble with anesthesia in the past. No history of sleep apnea. Patient is not on any anticoagulation medication. No family history of CRC PFSH Medical History Asthma Surgical History History of excision of mass (05/14/22) Family History Father Lung cancer Social History Alcohol intake: never Patient Tobacco Use Status: Never used Tobacco Review of Systems Const Denies weight gain and Denies weight loss ENT Reports no additional complaints, Denies dysphagia and Denies odynophagia Card Reports no additional complaints Resp Reports no additional complaints GI Reports abdominal pain (LUQ, epigastric), Denies belching, Denies melena, Reports bloating, Denies change in bowel habits, Reports constipation, Denies dysphagia, Denies excessive flatus, Denies dyspepsia, Reports heartburn, Denies diarrhea, Reports loose stools, Denies nausea, Denies odynophagia and Denies vomiting Reports no additional complaints Musc Reports no additional complaints Neuro Reports no additional complaints Psych Reports no additional complaints Endo Reports no additional complaints Physical Exam Vital Signs: Last Vital Signs Pulse 114 H 05/29/25 15:46 BP 148/86 H 05/29/25 15:46 Pulse Ox 97 05/29/25 15:46 Oxygen Delivery Method Room Air 05/29/25 15:46 BMI result Body Mass Index 25.5 Const General: healthy appearing, no acute distress and well developed Nutritional Appearance: well nourished Orientation/consciousness: patient oriented x3 Resp Effort & Inspection: normal respiratory effort, able to speak in complete sentences, no tracheal deviation and symmetric chest movement Auscultation: clear to auscultation bilaterally Cardio Rate: regular rate GI Inspection: Yes normal to inspection and No distended Palpation (GI): Soft to palpation, not firm, nontender and No hepatosplenomegaly present Auscultation: normal bowel sounds General: Yes no CVA tenderness Back/Spine/Pelvis Back: no CVA tenderness Skin General skin exam: elasticity normal, turgor normal and dry skin Neuro General: patient oriented x3 Psych Appearance: grossly normal Mental Status: mental status grossly normal Results Reviewed Results Reviewed: UPPER GI SERIES WITH BARIUM SWALLOW UPPER GI SERIES: Lateral cine images of the oropharynx and hypopharynx demonstrate normal swallow mechanism with normal epiglottic inversion and soft palate elevation. No laryngeal penetration, glottic or subglottic aspiration identified. Hypopharyngeal structures appear normal without evidence of mass or diverticulum. There was no significant cricopharyngeal achalasia. Dual and single contrast images of the esophagus demonstrate normal caliber, contour, and mucosal pattern. No evidence of stricture, mass, or ulcerations identified. Esophageal peristalsis was normal. No evidence of hiatus hernia identified. No significant gastroesophageal reflux was seen during the course of the examination. Dual contrast and single contrast images of the stomach demonstrated normal contour and mucosal pattern without evidence of mass, ulceration, or other abnormality. Contrast freely passed into the gastric antrum and duodenal bulb without delay. Single and air-contrast images of the duodenal bulb demonstrate no abnormality. The duodenal sweep has a normal appearance, course, and mucosal fold appearance. Incidental note was rapid transit of contrast through the small bowel to the terminal ileum in approximately 3 minutes. The patient states he takes senna. FLUOROSCOPY TIME: 2 minutes, 34 seconds Number of Spot Images:10 Number of cines obtained: 9 DOSE AREA PRODUCT: 2334 uGy-m2 (microgray-meter squared) FL/FL upper GI w air w Ba Swallow IMPRESSION: 1. Essentially normal upper GI examination. Assessment & Plan Assessment & Plan (1) Postprandial epigastric pain: Code(s): R10.13 - Epigastric pain (2) Gastroesophageal reflux disease: Code(s): K21.9 - Gastro-esophageal reflux disease without esophagitis Qualifiers: Esophagitis presence: esophagitis presence not specified Qualified Code(s): K21.9 - Gastro-esophageal reflux disease without esophagitis (3) Postprandial abdominal bloating: Code(s): R14.0 - Abdominal distension (gaseous) (4) Constipation: Code(s): K59.00 - Constipation, unspecified Qualifiers: Constipation type: slow transit constipation Qualified Code(s): K59.01 - Slow transit constipation (5) LLQ abdominal pain: Code(s): R10.32 - Left lower quadrant pain Plan Patient will be sent for colonoscopy as his bowel habits has changed and he has been having abdominal pain and severe abdominal bloating. Will send him also for upper endoscopy to rule out gastritis, duodenitis, esophagitis, H pylori. He will start taking Citrucel in the morning and can take senna at bedtime. What to expect before during and after colonoscopy and endoscopy discussed with patient. Stressed the importance of good bowel prep day before colonoscopy. I will see patient after the procedure. He is agreeable to current plan of care and verbalizes understanding of instructions. He was given the opportunity to ask questions and all questions answered. Thank you for allowing me to participate in his care Orders: Referrals GI Procedure Notification Z12.11 - Encounter for screening for malignant neoplasm of colon, K21.9 - Gastro-esophageal reflux disease without esophagitis Medications: New methylcellulose (laxative) (Citrucel) 500 mg PO DAILY 30 tabs 2RF K59.00 - Constipation, unspecified famotidine 20 mg PO BEDTIME PRN 30 tabs 3RF heartburn bisacodyl (Dulcolax (bisacodyl)) take 4 tabs at noon the day before your colonoscopy 20 mg (4 x 5 mg) PO ONCE 4 tabs 0RF constipation 1 day Z12.11 - Encounter for screening for malignant ne oplasm of colon polyethylene glycol 3350 (Miralax) As directed by gastro[facility]ology [facility] at [facility] 238 grams PO ONCE 238 grams 0RF Z12.11 - Encounter for screening for malignant neoplasm of colon Refilled esomeprazole magnesium (Nexium) 40 mg PO DAILY 30 caps 3RF K21.9 - Gastro- esophageal reflux disease without esophagitis albuterol sulfate 2.5 mg (3 mL) inhalation Q4-6H PRN 90 mL 0RF shortness of breath or wheezing Coding Level of Care Code Est Pt Level 3 (03564) Diagnoses Postprandial epigastric pain R10.13 Gastroesophageal reflux disease, unspecified whether esophagitis present K21.9 Esophagitis presence: esophagitis presence not specified Postprandial abdominal bloating R14.0 Slow transit constipation K59.01 Constipation type: slow transit constipation LLQ abdominal pain R10.32 Time Spent (min) 30 Comment 20 minutes spent with patient and additional 10 minutes spent reviewing his records
[2025-05-29 15:46] VITALS: BP 148/86; PULSE 114; O2SAT 97; BMI 25.5
== END 2025-05-29 16:10 | disposition home or self-care (01) ==
LOC: HO.HGI 15:31
PROVIDERS: PCP Student in an Organized Health Care Education/Training Program; Visit Provider Nurse Practitioner Family
DX: R10.13 Epigastric pain (principal); K21.9 Gastro-esophageal reflux disease without esophagitis; R14.0 Abdominal distension (gaseous); K59.01 Slow transit constipation; R10.32 Left lower quadrant pain
CPT/HCPCS: 99213